=== PATIENT | male | born 1950 | race Caucasian/White ===

== ENCOUNTER → 2016-07-16 | Outpatient (CLI) | payer BC ==
[2016-03-03 07:00] VITALS: BP 110/54
[~2016-07-16] MED LIST: ASPI-482 PO; ATOR10TA PO; GLYB2.5T2 PO; INSU100V8 SQ; METF500T4 PO; TAMS0.4C97 PO; [UNRECOGNIZED DRUG - CODE]; [UNRECOGNIZED DRUG - OTHER]; [UNRECOGNIZED DRUG - OTHER]
--- NOTE | 2016-07-16 13:53 | KCIC ---
Three views of the bilateral shoulders Indication: Reason For Study Reason: PAIN / Spl. Instructions: Bilat shoulder pain for several mths. NKI. Cortisone DecemberFeb 2016 / History: FINDINGS Right: There is mild degenerative change of the AC joint no periosteal reaction or focal bone lesion. Visualized lung apex is clear. There is a small calcification along the superior lateral aspect of the humeral head which could represent an old avulsion or calcific tendonitis. Eft: There is mild degenerative change of the acromioclavicular articulation. No periosteal reaction or focal bone lesion. Visualized lung apex is clear. No fracture. IMPRESSION - Bilateral AC joint arthrosis. - There is an indeterminate calcification overlying the superolateral aspect of the humeral head which could represent an old avulsion or calcific tendinitis. Electronically signed by: Lee Ramos (Jul 16, 2016 13:52:12)
== END | disposition home or self-care (01) ==
LOC: KCIC 10:49
PROVIDERS: ATTEND Family Medicine
DX: M25.511 Pain in right shoulder (principal); M25.512 Pain in left shoulder; M19.012 Primary osteoarthritis, left shoulder
CPT/HCPCS: 73030

== ENCOUNTER → 2016-11-01 | Outpatient (CLI) | payer BC ==
[2016-03-03 07:00] VITALS: BP 110/54
[~2016-11-01] MED LIST changes: +IOHEXOL 180 MG/ML 10 ML VIAL. INT ART ONE; +LIDOCAINE 1% Multi-Dose 20 ML VIAL. ID ONE
--- NOTE | 2016-11-01 14:51 | KCIC ---
PROCEDURE CT arthrogram of the left shoulder HISTORY Rotator cuff tendinitis. Pain for 1 year. Overhead repetitive motion. TECHNIQUE Standard noncontrast imaging Exposure: One or more of the following individualized dose reduction techniques were utilized for this exam: 1. Automated exposure control. 2. Adjustment of the mA and/or kV according to patient size. 3. Use of iterative reconstruction technique. COMPARISON None FINDINGS Acromioclavicular joint demonstrates primary osteoarthritis with small undersurface osteophytes. No evidence of abnormal contrast within the rotator cuff. Minimal contrast within the anterior subdeltoid bursa likely just due to the injection procedure. No evidence of communicating defect. Glenohumeral joint appears intact without focal articular cartilage defect. Biceps tendon appears within the bicipital groove. Small focus of contrast identified at the anterior labrum, at 3 o'clock. I suspect this is located just anterior to the labrum, rather than intra labral signal or tear. No obvious soft tissue abnormality. IMPRESSION 1. No evidence of rotator cuff tear. 2. Acromioclavicular joint primary osteoarthritis. 3. Small focus of contrast identified at the anterior labrum, thought to be extralabral, rather than a tear. Electronically signed by: Faisal Funez MD (November 01, 2016 14:49:58)
--- NOTE | 2016-11-01 17:20 | KCIC ---
PROCEDURE: Left shoulder injection using fluoroscopic guidance, prior to CT. HISTORY: Shoulder pain. TECHNIQUE: The procedure was explained to the patient as were potential risks, including among others infection, bleeding or allergic reaction. All questions were answered. Informed written and verbal consent was obtained. The shoulder was prepped and draped in the usual sterile manner. Following administration of local anesthetic, a 22-gauge needle was advanced into the anterior shoulder. Following negative aspiration, 12 cc of a solution of 15 cc Omnipaque-180 contrast and 5 cc 1% lidocaine was injected without difficulty. The needle was removed. There was good hemostasis at the injection site. The patient left in stable condition without immediate complication. The patient was given postprocedural instructions, and instructed to contact us or the ER if there are any complications. A single spot image is obtained. FLUOROSCOPY TIME: 18 seconds Electronically signed by: Faisal Funez MD (November 01, 2016 17:18:58)
== END | disposition home or self-care (01) ==
LOC: KCIC 13:03
PROVIDERS: ATTEND Nurse Practitioner Gerontology
DX: M25.512 Pain in left shoulder (principal); M75.92 Shoulder lesion, unspecified, left shoulder
CPT/HCPCS: 73040; 73201

== ENCOUNTER 2016-11-18 08:08 | Outpatient (CLI) | payer BC ==
[2016-11-18] VITALS (9 sets, daily range): BP systolic 112–144; BP diastolic 67–78
[~2016-11-18] VITALS: Ht 177.8 cm; Wt 90.7 kg
[~2016-11-18 08:08] MED LIST changes: -IOHEXOL 180 MG/ML 10 ML VIAL. INT ART ONE; -LIDOCAINE 1% Multi-Dose 20 ML VIAL. ID ONE
[2016-11-18 08:26] LABS: HEMATOCRIT 40.8 % (39.0-53.0); HEMOGLOBIN 13.8 g/dL (13.0-17.5); RED BLOOD COUNT 4.48 x10^6/uL (4.30-5.70); WHITE BLOOD COUNT 9.7 x10^3/uL (4.0-11.0)
[2016-11-18] MEDS ORDERED: MULT-208 PO (08:28)
[2016-11-18] MEDS ORDERED: RABE20TA18 PO (08:28)
[2016-11-18] MEDS ORDERED: LISI1TAB5 PO (08:28)
[2016-11-18] MEDS ORDERED: TADA5TAB PO (08:28)
[2016-11-18] MEDS ORDERED: glucovance PO (08:28)
[2016-11-18] MEDS ORDERED: ASPI-630 PO (08:28)
[2016-11-18 08:38] LABS: CALCIUM 9.6 mg/dL (8.5-10.1); CREATININE 1.7 mg/dL (0.7-1.3); GFR 40.5; POTASSIUM 4.8 mmol/L (3.5-5.1)
[2016-11-18 08:39] LABS: INR 0.9 (0.8-1.1)
[2016-11-18] MEDS ORDERED: VERAPAMIL 5 MG/2 ML VIAL. ONE (09:17)
[2016-11-18] MEDS ORDERED: HEPARIN for IV BOLUS 10,000 UNIT/10 ML VIAL. ONE (09:17)
[2016-11-18] MEDS ORDERED: NITROGLYCERIN 200 MCG/2 ML SYRINGE FOR CATH/VASC LAB. ONE (09:17)
[2016-11-18] MEDS ORDERED: fentaNYL PF VIAL 100 MCG/2 ML VIAL ONE (09:17)
[2016-11-18] MEDS ORDERED: MIDAZOLAM HCL/PF 2 MG/2 ML VIAL. ONE (09:18)
[2016-11-18] MEDS ORDERED: LIDOCAINE 2% 20 ML VIAL. ONE (09:19)
[2016-11-18] MEDS ORDERED: IODIXANOL 320 MG/ML 100 ML VIAL. ONE (09:19)
[2016-11-18] MEDS ORDERED: LIDOCAINE 2% 20 ML VIAL. IJ ONE (09:30)
[2016-11-18] MEDS ORDERED: IODIXANOL 320 MG/ML 100 ML VIAL. IART ONE (09:30)
[2016-11-18] MEDS ORDERED: MIDAZOLAM HCL/PF 2 MG/2 ML VIAL. IV ONE (09:30)
[2016-11-18] MEDS ORDERED: fentaNYL PF VIAL 100 MCG/2 ML VIAL IV ONE (09:30)
[2016-11-18] MEDS ORDERED: 0.9 % SODIUM CHLORIDE 10 ML DISP.SYRIN. IV PRN (11:15)
[2016-11-18] MEDS ORDERED: NITROGLYCERIN SUBLINGUAL 0.4 MG BOTTLE OF 25. SL PRN (11:15)
--- NOTE | 2016-11-18 11:21 | CARD ---
APPROVED REPORT Procedure(s) performed: Left Heart Catheterization, Bypass angiography, coronary angiography Right Heart Catheterization HISTORY The patient is a 66 year-old male with a history of : diabetes mellitus with treatment, coronary shelby ry disease, previous CABG (The CABG date was ). INDICATION The indication(s) include : dyspnea, Patient is a 66 y.o male with exertional dyspnea suggestive of s ymptoms prior to his bypass. 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 . CASE TECHNIQUE During this case, Fluoroscopy and low osmolar contrast were used for imaging. PROCEDURE NARRATIVE The patient was brought electively to the cardiac catheterization lab. A timeout was performed confi rming the patient's name, date of , procedure, and site of procedure. All necessary personnel w ere wearing the appropriate protective equipment and radiation monitor devices. After explaining the risks and benefits of the procedure and alternatives, informed consent was obtained. (See nursing no david for medications administered). The right groin was sterilely prepped and draped in the usual fas hion. The right groin was infiltrated with 20 mL of 2% lidocaine for subcutaneous anesthesia. A 6 F sheath was inserted into the right femoral artery without difficulty via the modified seldinger techn ique with an 18G needle and a J-tipped guidewire. Next, an 8Fr sheath was inserted in the right commo n femoral vein in similar fashion without difficulty. A PA catheter was then advanced through the right heart chambers, pressures and saturations were obta ined. Subsequently, right and left coronary angiography was performed using standard JR4 and JL4 diag nostic catheters. Left ventricular end diastolic pressure was obtained with a pigtail catheter and p ullback was performed. HEMODYNAMICS: LVEDP 18mm Hg AO: 150/79 *No gradient on LV to aortic pullback. PCWP: 11 mm Hg PA:35/11/25 RV: 36/10/22 RA: 8 mm Hg Graeme: 4.5 L/min Tco: 5.5 L/min PA saturation: 71% FA saturation: 98% LEFT VENTRICULOGRAM: Deferred due to renal insufficiency. CORONARY ANGIOGRAPHY: LM is a large caliber vessel with normal angiographic appearance. LAD is a large caliber vessel an ostial occlusion. The mid to distal vessel fills via a patent WINKLER b ut is extremely small but patent. D1 has an ostial 100% occlusion. This fills via a SVG and distally has not significant disease. LCx is a moderate co-dominant vessel with a proximal 40% stenosis. The distal vessel fills in antegra de and via a SVG to the LPL OM1 is a small caliber vessel with normal angiographic appearance. LPL1 is a small caliber vessel with normal angiographic appearance. LPL2 is a moderate caliber vessel that fills via a SVG, there is also antegrade flow noted from the n ative circulation. RCA is a moderate caliber dominant vessel with mild diffuse irregularities of up to 30%. RPDA is a moderate caliber vessels with mild diffuse irregularities of up to 30%. BYPASS ANGIOGRAPHY: WINKLER to LAD - Widely patent without anastomotic stenosis. SVG sequential to D1/LPL - Widely patent without anastomotic stenosis. Conclusion 1. Normal biventricular filling pressures. 2. No pulmonary HTN 3. Normal cardiac output. 4. Severe two vessel coronary artery disease involving the LAD/Diagonal. 5. Patent WINKLER, SVG to D1/LPL sequential graft. Recommendations No obvious cardiac source of dyspnea noted. Plan for echocardiogram to rule out mitral or tricuspic insufficiency. Plan for 6 minute cole walk to rule out pulmonary source.
--- NOTE | 2016-11-18 13:03 | CARD ---
APPROVED REPORT EXAM: Two-dimensional and M-mode echocardiogram with Doppler and color Doppler. Other Information Quality : GoodHR: 62bpm Rhythm : NSR INDICATION Dyspnea 2D DIMENSIONS RVDd3.4 (2.9-3.5cm)Left Atrium(2D)3.6 (1.6-4.0cm) IVSd1.3 (0.7-1.1cm)Aortic Root(2D)3.3 (2.0-3.7cm) LVDd3.3 (3.9-5.9cm)LVOT Diameter2.3 (1.8-2.4cm) PWd1.2 (0.7-1.1cm)LVDs2.6 (2.5-4.0cm) FS (%) 22.5 %SV20.9 ml LVEF(%)46.5 (>50%) Aortic Valve AoV Peak Devaughn.119.6cm/sAoV VTI22.6cm AO Peak GR.5.7mmHgLVOT Peak Devaughn.80.6cm/s AO Mean GR.2mmHgAVA (VMAX)2.85cm2 Mitral Valve MV E Pxoomawe86.5cm/sMV E Peak Gr.2mmHg MV DECEL [id number] A Xzmhpwem99.9cm/s MV E Mean Gr.1mmHgE/A Ratio1.1 MV A Jqguqwis280wm Pulmonary Valve PV Peak Rigtobxw89.3cm/s Tricuspid Valve TR P. Mkytbbxu641gx/sTR Peak Gr.16mmHg Pulmonary Vein S1 Qscdueyd89.1cm/sD2 Oudnycpl70.4cm/s PVa kmnaoszw31wpte LEFT VENTRICLE The left ventricle cavity is small. There is mild concentric left ventricular hypertrophy. The left v entricular systolic function is normal and the ejection fraction is within normal range. The Ejection Fraction is 60-65%. There is normal LV segmental wall motion. Septal motion consistent with post-ope rative state. The left ventricular diastolic function and filling is normal for age. RIGHT VENTRICLE The right ventricle is normal size. There is normal right ventricular wall thickness. The right ventr icular systolic function is normal. ATRIA The left atrium size is normal. The right atrium size is normal. The interatrial septum is intact wit h no evidence for an atrial septal defect or patent foramen ovale as noted on 2-D or Doppler imaging. AORTIC VALVE The aortic valve is mildly sclerotic. The aortic valve is trileaflet. Doppler and Color Flow revealed no significant aortic regurgitation. There is no significant aortic valvular stenosis. MITRAL VALVE Mitral annular calcification is mild. The mitral valve leaflets are thickened. There is no evidence o f mitral valve prolapse. There is no mitral valve stenosis. Doppler and Color Flow revealed trace nelida ral regurgitation. TRICUSPID VALVE Doppler and Color Flow revealed trace tricuspid regurgitation. The pulmonary artery systolic pressure is estimated at 19 mmHg. There is no pulmonary hypertension. PULMONIC VALVE Doppler and Color Flow revealed trace pulmonic valvular regurgitation. There is no pulmonic valvular stenosis. GREAT VESSELS The aortic root is normal in size. The ascending aorta is normal in size. The IVC is normal in size a nd collapses >50% with inspiration. PERICARDIAL EFFUSION There is no evidence of significant pericardial effusion. Critical Notification Critical Value: No <Conclusion> There is mild concentric left ventricular hypertrophy. The left ventricular systolic function is normal and the ejection fraction is within normal range. Th e Ejection Fraction is 60-65%. There is normal LV segmental wall motion. Septal motion consistent with post-operative state.
== END 2016-11-18 13:45 | disposition home or self-care (01) ==
LOC: CCL 08:08
PROVIDERS: ATTEND Internal Medicine Cardiovascular Disease
DX: I25.10 Atherosclerotic heart disease of native coronary artery without angina pectoris (principal); E78.00 Pure hypercholesterolemia, unspecified; E11.9 Type 2 diabetes mellitus without complications; Z72.89 Other problems related to lifestyle; Z79.01 Long term (current) use of anticoagulants
CPT/HCPCS: 36415; 80048; 85027; 85610; 85730; 93306; 93453; 94620; C1769; C1771; C1773; C1892; J2250; J3010; G0269

== ENCOUNTER → 2016-12-31 | Outpatient (CLI) | payer BC ==
[2016-11-18 13:00] VITALS: BP 120/78
[~2016-12-31] MED LIST changes: +ASPI-630 PO; +LISI1TAB5 PO; +MULT-208 PO; +RABE20TA18 PO; +TADA5TAB PO; +glucovance PO
--- NOTE | 2016-12-31 08:52 | KCIC ---
Indication: Shortness of air. Time of exam 8:36 AM Comparison is made with prior chest from 03/01/2016. Changes of median sternotomy are noted. The heart size is normal. Lungs are clear. The vascularity is normal. No infiltrate, effusion or pneumothorax is seen. IMPRESSION: No acute cardiopulmonary process is detected. Electronically signed by: Steve Ace MD (12/31/2016 8:49 AM) [id number]
== END | disposition home or self-care (01) ==
LOC: KCIC 08:21
PROVIDERS: ATTEND Internal Medicine Pulmonary Disease
DX: R06.02 Shortness of breath (principal)
CPT/HCPCS: 71020

== ENCOUNTER 2017-08-19 17:11 | Emergency (ER) | payer BC, MEDICARE ==
[2017-08-19] MEDS: IV NORMAL SALINE 1000ML BAG 1,000 ML IV ×2 (18:09→19:12)
[2017-08-19] MEDS: FAMOTIDINE 20 MG/2 ML VIAL IVP (18:10)
[2017-08-19] MEDS: ONDANSETRON PF 4 MG/2 ML VIAL. IV (18:10)
[2017-08-19 18:18] LABS: BASO % 0 % (0-3); EOS % 0 % (0-3); HEMATOCRIT 40.1 % (39.0-53.0); LYMPH # 0.3 x10^3/uL (1.0-4.8); LYMPH % 2 % (24-48); MEAN CORPUSCULAR HEMOGLOBIN 30 pg (25-35); MEAN CORPUSCULAR HGB CONC 35 g/dL (31-37); MEAN CORPUSCULAR VOLUME 86 fL (79-100); MONO # 0.4 x10^3/uL (0.0-1.1); MONO % 3 % (0-9); NEUT # 14.6 x10^3uL (1.8-7.7); NEUT % 95 % (31-73); PLATELET COUNT 244 x10^3/uL (140-400); RED BLOOD COUNT 4.69 x10^6/uL (4.30-5.70); RED CELL DISTRIBUTION WIDTH 13.6 % (11.5-14.5); WHITE BLOOD COUNT 15.3 x10^3/uL (4.0-11.0)
[2017-08-19 18:20] LABS: ADD MAN DIFF? YES
[2017-08-19 18:31] LABS: ANION GAP 14 (6-14); BLOOD UREA NITROGEN 32 mg/dL (8-26); BUN/CREATININE RATIO 21 (6-20); CALCIUM 9.2 mg/dL (8.5-10.1); CARBON DIOXIDE 27 mmol/L (21-32); CHLORIDE 96 mmol/L (98-107); CREATININE 1.5 mg/dL (0.7-1.3); GFR 46.8; GLUCOSE 339 mg/dL (70-99); POTASSIUM 3.6 mmol/L (3.5-5.1); SODIUM 137 mmol/L (136-145)
[2017-08-19 18:37] LABS: ALBUMIN 3.8 g/dL (3.4-5.0); ALK PHOS 115 U/L (46-116); ALT (SGPT) 34 U/L (16-63); AST (SGOT) 21 U/L (15-37); LIPASE 116 U/L (73-393); TOTAL BILIRUBIN 0.9 mg/dL (0.2-1.0); TOTAL PROTEIN 7.6 g/dL (6.4-8.2)
[2017-08-19 18:41] LABS: TROPONINI < 0.017 ng/mL (0.000-0.055)
[2017-08-19 18:53] LABS: ACETONE SM POS (NEG)
[2017-08-19 18:55] LABS: % BANDS 3 % (0-9); % LYMPHS 1 % (24-48); % MONOS 1 % (0-10); % SEGS 95 % (35-66); PLT ESTIMATE ADEQUATE (ADEQUATE)
[2017-08-19] MEDS: PROMETHAZINE 12.5 MG in IV DEXTROSE 5% 50 ML IV (19:15)
[2017-08-19 20:11] LABS: POC GLUCOSE 228 mg/dL (70-99)
[2017-08-19 20:44] LABS: BILIRUBIN,URINE NEGATIVE (NEG); CLARITY,URINE CLEAR; COLOR,URINE YELLOW; GLUCOSE,URINE >=1000 mg/dL (NEG); NITRITE,URINE NEGATIVE (NEG); PROTEIN,URINE 100 mg/dL (NEG-TRACE); UROBILINOGEN,URINE 0.2 mg/dL (0.2 mg/dL)
[2017-08-19 20:53] LABS: BACTERIA,URINE 0 /HPF (0-FEW); RBC,URINE RARE /HPF (0-2); SQUAMOUS EPITHELIAL CELL,UR OCC /LPF; WBC,URINE OCC /HPF (0-4)
[2017-08-19] MEDS ORDERED: ONDANSETRON ODT 4 MG TAB.RAPDIS. (21:49)
[2017-08-19] MEDS: ONDANSETRON ODT 4 MG TAB.RAPDIS. PO (21:56)
== END 2017-08-19 22:39 | disposition home or self-care (01) ==
LOC: ER 17:11
DX: R11.2 Nausea with vomiting, unspecified (principal); E11.65 Type 2 diabetes mellitus with hyperglycemia; R10.13 Epigastric pain; E78.00 Pure hypercholesterolemia, unspecified; K21.9 Gastro-esophageal reflux disease without esophagitis; I95.9 Hypotension, unspecified; Z95.1 Presence of aortocoronary bypass graft; Z79.4 Long term (current) use of insulin
CPT/HCPCS: 36415; 80053; 81001; 82010; 82962; 83690; 84484; 85007; 85025; 93005; 96361; 96365; 96375; 99285-25; J2405; J2550; J7030; Q0162; S0028

== ENCOUNTER 2018-01-06 16:15 | Emergency (ER) | payer BC, MEDICARE ==
[2018-01-06 16:31] LABS: POC GLUCOSE 477 mg/dL (70-99)
[2018-01-06] MEDS: IV NORMAL SALINE 1000ML BAG 1,000 ML IV (16:36)
[2018-01-06 16:37] LABS: ADD MAN DIFF? NO
[2018-01-06 16:40] LABS: BASO % 0 % (0-3); EOS % 0 % (0-3); HEMATOCRIT 41.4 % (39.0-53.0); HEMOGLOBIN 14.7 g/dL (13.0-17.5); LYMPH # 1.9 x10^3/uL (1.0-4.8); LYMPH % 17 % (24-48); MEAN CORPUSCULAR HEMOGLOBIN 30 pg (25-35); MEAN CORPUSCULAR HGB CONC 36 g/dL (31-37); MEAN CORPUSCULAR VOLUME 83 fL (79-100); MONO # 0.9 x10^3/uL (0.0-1.1); MONO % 8 % (0-9); NEUT # 8.3 x10^3uL (1.8-7.7); NEUT % 75 % (31-73); PLATELET COUNT 332 x10^3/uL (140-400); RED BLOOD COUNT 4.97 x10^6/uL (4.30-5.70); RED CELL DISTRIBUTION WIDTH 14.5 % (11.5-14.5); WHITE BLOOD COUNT 11.1 x10^3/uL (4.0-11.0)
[2018-01-06 17:01] LABS: ANION GAP 13 (6-14); BLOOD UREA NITROGEN 25 mg/dL (8-26); BUN/CREATININE RATIO 15 (6-20); CALCIUM 9.3 mg/dL (8.5-10.1); CARBON DIOXIDE 26 mmol/L (21-32); CHLORIDE 92 mmol/L (98-107); CREATININE 1.7 mg/dL (0.7-1.3); GFR 40.4; POTASSIUM 3.1 mmol/L (3.5-5.1); SODIUM 131 mmol/L (136-145)
[2018-01-06 17:03] LABS: GLUCOSE 469 mg/dL (70-99)
[2018-01-06 17:06] LABS: ALBUMIN 4.4 g/dL (3.4-5.0); ALBUMIN/GLOBULIN RATIO 1.2 (1.0-1.7); ALK PHOS 92 U/L (46-116); ALT (SGPT) 30 U/L (16-63); AST (SGOT) 20 U/L (15-37); MAGNESIUM 1.7 mg/dL (1.8-2.4); TOTAL PROTEIN 8.2 g/dL (6.4-8.2)
[2018-01-06] MEDS: INSULIN REGULAR 100 UNIT/ML 3ML VIAL. IV (17:08)
[2018-01-06 17:14] LABS: ACETONE NEG (NEG)
[2018-01-06 17:17] LABS: BILIRUBIN,URINE NEGATIVE (NEG); CLARITY,URINE CLEAR; COLOR,URINE YELLOW; GLUCOSE,URINE >=1000 mg/dL (NEG); NITRITE,URINE NEGATIVE (NEG); PH,URINE 5.5; PROTEIN,URINE 100 mg/dL (NEG-TRACE); UROBILINOGEN,URINE 0.2 mg/dL (0.2 mg/dL)
[2018-01-06 17:29] LABS: BACTERIA,URINE 0 /HPF (0-FEW); SQUAMOUS EPITHELIAL CELL,UR FEW /LPF
[2018-01-06] MEDS: POTASSIUM CHLORIDE 20 MEQ TABLET.ER. PO (18:01)
[2018-01-06 18:04] LABS: POC GLUCOSE 115 mg/dL (70-99)
== END 2018-01-06 18:05 | disposition home or self-care (01) ==
LOC: ER 16:15
DX: E11.65 Type 2 diabetes mellitus with hyperglycemia (principal); E87.6 Hypokalemia; E78.00 Pure hypercholesterolemia, unspecified; K21.9 Gastro-esophageal reflux disease without esophagitis; I11.9 Hypertensive heart disease without heart failure; Z95.5 Presence of coronary angioplasty implant and graft
CPT/HCPCS: 36415; 71046; 80053; 81001; 82010; 82962; 83735; 83930; 85025; 93005; 96361; 96374; 99285-25; J1815; J7030

== ENCOUNTER → 2018-04-26 | Outpatient (CLI) | payer BC ==
[2018-01-06 18:03] VITALS: BP 140/80
[~2018-04-26] MED LIST changes: +METF500T16 PO; -METF500T4 PO
--- NOTE | 2018-04-26 11:35 | CARD ---
MR#: [id number] Date of Study: 04/26/2018 Ordering Physician: VIC WORKMAN, Referring Physician: VIC WORKMAN, Tech: Aracelis Macias MICHELLE APPROVED REPORT EXAM: Two-dimensional and M-mode echocardiogram with Doppler and color Doppler. Other Information Quality : GoodHR: 60bpm Rhythm : NSR INDICATION Pre Op 2D DIMENSIONS RVDd3.1 (2.9-3.5cm)Left Atrium(2D)3.8 (1.6-4.0cm) IVSd1.5 (0.7-1.1cm)Aortic Root(2D)3.2 (2.0-3.7cm) LVDd4.4 (3.9-5.9cm)LVOT Diameter2.0 (1.8-2.4cm) PWd1.3 (0.7-1.1cm)LVDs3.0 (2.5-4.0cm) FS (%) 32.1 %SV53.0 ml LVEF(%)60.5 (>50%) M-Mode DIMENSIONS Left Atrium(MM)3.48 (2.5-4.0cm)Aortic Root3.77 (2.2-3.7cm) Aortic Valve AoV Peak Devaughn.144.0cm/sAoV VTI31.8cm AO Peak GR.8.3mmHgLVOT Peak Devaughn.125.0cm/s AO Mean GR.4mmHgAVA (VMAX)2.76cm2 YVONNE (VTI)2.80cm2 Mitral Valve MV E Wiwmofit21.4cm/sMV E Peak Gr.4mmHg MV DECEL [id number] A Jateagaw86.2cm/s MV E Mean Gr.1mmHgE/A Ratio1.5 MV A [id number] Pulmonary Valve PV Peak Mtltzlbi87.7cm/s Tricuspid Valve TR P. Eucrvikd465hf/sRAP KTGEVJBM7ziNu TR Peak Gr.81skFgZGLG74oaIf Pulmonary Vein S1 Aptuaxya49.5cm/sD2 Oupbclha81.4cm/s PVa zjsccngc58ldnn LEFT VENTRICLE The left ventricle is normal size. There is mild concentric left ventricular hypertrophy. The left ve ntricular systolic function is normal and the ejection fraction is within normal range. The Ejection Fraction is 55-60%. There is normal LV segmental wall motion. Transmitral Doppler flow pattern is Gra de I-abnormal relaxation pattern. RIGHT VENTRICLE The right ventricle is normal size. There is normal right ventricular wall thickness. The right ventr icular systolic function is normal. ATRIA The left atrium size is normal. The right atrium size is normal. The interatrial septum is intact wit h no evidence for an atrial septal defect or patent foramen ovale as noted on 2-D or Doppler imaging. AORTIC VALVE The aortic valve is trileaflet. The aortic valve is calcified but opens well. Doppler and Color Flow revealed no significant aortic regurgitation. There is no significant aortic valvular stenosis. MITRAL VALVE The mitral valve is normal in structure and function. There is no evidence of mitral valve prolapse. There is no mitral valve stenosis. Doppler and Color-flow revealed trace to mild mitral regurgitation . TRICUSPID VALVE The tricuspid valve is normal in structure and function. Doppler and Color Flow revealed trace tricus pid regurgitation. The PA pressure was estimated at 24 mmHg. There is no tricuspid valve prolapse or vegetation. There is no tricuspid valve stenosis. PULMONIC VALVE The pulmonary valve is normal in structure and function. Doppler and Color Flow revealed trace pulmon ic valvular regurgitation. There is no pulmonic valvular stenosis. GREAT VESSELS The aortic root is normal in size. PERICARDIAL EFFUSION There is no evidence of significant pericardial effusion. Critical Notification Critical Value: No <Conclusion> The left ventricle is normal size. The left ventricular systolic function is normal and the ejection fraction is within normal range. The Ejection Fraction is 55-60%. There is mild concentric left ventricular hypertrophy. There is no significant aortic valvular stenosis. Doppler and Color Flow revealed no significant aortic regurgitation. Doppler and Color-flow revealed trace to mild mitral regurgitation. Doppler and Color Flow revealed trace tricuspid regurgitation. The PA pressure was estimated at 24 mmHg. Signed by : Sohail Macario MD Electronically Approved : 04/26/2018 11:34:22
== END | disposition home or self-care (01) ==
LOC: ECHO 10:33
PROVIDERS: ATTEND Internal Medicine Cardiovascular Disease
DX: I34.0 Nonrheumatic mitral (valve) insufficiency (principal); I51.7 Cardiomegaly
CPT/HCPCS: 93306

== ENCOUNTER 2018-08-15 15:39 | Emergency (ER) | payer BC, MEDICARE ==
[~2018-08-15] VITALS: Ht 177.8 cm; Wt 81.6 kg
[2018-08-15] MEDS ORDERED: IV NORMAL SALINE 1000ML BAG 1,000 ML IV ONE (16:15)
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
[2018-08-15 16:33] LABS: BASO # 0.1 x10^3/uL (0.0-0.2); BASO % 1 % (0-3); EOS % 0 % (0-3); HEMATOCRIT 40.9 % (39.0-53.0); HEMOGLOBIN 13.8 g/dL (13.0-17.5); LYMPH # 2.4 x10^3/uL (1.0-4.8); LYMPH % 22 % (24-48); MEAN CORPUSCULAR HEMOGLOBIN 30 pg (25-35); MEAN CORPUSCULAR HGB CONC 34 g/dL (31-37); MEAN CORPUSCULAR VOLUME 89 fL (79-100); MONO # 0.9 x10^3/uL (0.0-1.1); MONO % 8 % (0-9); NEUT # 7.3 x10^3uL (1.8-7.7); NEUT % 69 % (31-73); PLATELET COUNT 329 x10^3/uL (140-400); RED BLOOD COUNT 4.59 x10^6/uL (4.30-5.70); RED CELL DISTRIBUTION WIDTH 13.2 % (11.5-14.5); WHITE BLOOD COUNT 10.6 x10^3/uL (4.0-11.0)
--- NOTE | 2018-08-15 16:46 | RAD ---
EXAM: Chest, 2 views. HISTORY: Cough. COMPARISON: 01/06/2018. FINDINGS: 2 views the chest are obtained. There is no infiltrate, pleural effusion or pneumothorax. The heart is normal in size. There are findings consistent with CABG. IMPRESSION: No acute pulmonary finding. Electronically signed by: Stephanie Ruiz MD (08/15/2018 4:43 PM) [facility]
[2018-08-15 16:57] LABS: INFLUENZA A PATIENT NEGATIVE (NEGATIVE); INFLUENZA B PATIENT NEGATIVE (NEGATIVE)
[2018-08-15 16:59] LABS: CALCIUM 9.2 mg/dL (8.5-10.1); CREATININE 1.6 mg/dL (0.7-1.3); GFR 43.3; POTASSIUM 3.7 mmol/L (3.5-5.1)
[2018-08-15 17:05] LABS: ALBUMIN 4.2 g/dL (3.4-5.0); ALBUMIN/GLOBULIN RATIO 1.3 (1.0-1.7); MAGNESIUM 1.8 mg/dL (1.8-2.4); TOTAL BILIRUBIN 0.7 mg/dL (0.2-1.0); TOTAL PROTEIN 7.4 g/dL (6.4-8.2)
[2018-08-15] MEDS ORDERED: ONDA4TAB12 PO (18:11)
[2018-08-15 18:54] LABS: BILIRUBIN,URINE SMALL (NEG); CLARITY,URINE CLEAR; COLOR,URINE YELLOW; NITRITE,URINE NEGATIVE (NEG); PH,URINE 6.5; PROTEIN,URINE 100 mg/dL (NEG-TRACE)
[2018-08-15 19:06] VITALS: BP 132/61
[2018-08-15 19:06] LABS: HYALINE CASTS, URINE MODERATE /HPF; SQUAMOUS EPITHELIAL CELL,UR FEW /LPF
[2018-08-15 19:07] LABS: BACTERIA,URINE 0 /HPF (0-FEW); WBC,URINE 0 /HPF (0-4)
--- NOTE | 2018-08-16 18:48 | EKG ---
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
== END 2018-08-15 19:17 | disposition home or self-care (01) ==
LOC: ER 15:39
DX: E86.0 Dehydration (principal); R11.2 Nausea with vomiting, unspecified; M79.10 Myalgia, unspecified site; E11.9 Type 2 diabetes mellitus without complications; K21.9 Gastro-esophageal reflux disease without esophagitis; E78.00 Pure hypercholesterolemia, unspecified; I10 Essential (primary) hypertension; Z90.89 Acquired absence of other organs; Z95.1 Presence of aortocoronary bypass graft
CPT/HCPCS: 36415; 71046; 80053; 81001; 83735; 84484; 85025; 87804; 93005; 96360; 99284; J7030

== ENCOUNTER → 2019-01-19 | Outpatient (CLI) | payer BC ==
[~2019-01-19] MED LIST changes: +AMLO5TAB10 PO; +CRESTOR10 MG PO; +DOCU-109 PO; +HYDR-2759 PO; +HYDR-2765 PO; +HYDR50TA6 PO; +ONDA4TAB12 PO
--- NOTE | 2019-01-19 13:43 | KCIC ---
CT cervical spine without contrast History: Bilateral shoulder and arm pain, twisting injury Technique: Noncontrast CT imaging was performed of the cervical spine. Multiplanar reconstruction images are submitted. Exposure: One or more of the following individualized dose reduction techniques were utilized for this examination: 1. Automated exposure control 2. Adjustment of the mA and/or kV according to patient size 3. Use of iterative reconstruction technique. Comparison: None Findings: Cervical vertebral body stature and AP alignment are within normal limits. Atlanto-axial distance is within normal limits. There is appropriate alignment of lateral masses of C1 relative to C2. Occipital condylar-C1 relationship is maintained. There is moderate degenerative disc disease C6-7, minimally at C5-6, C3-4, C2-3. There is atherosclerotic calcification of the carotid arteries in the neck bilaterally. C2-C3: There is shallow posterior protrusion estimated about 2 mm AP. Central canal is minimally narrowed to about 8 to 9 mm. Neural foramina are not significantly narrowed. There is mild uncovertebral degenerative change, also bilateral facet degenerative change. C3-4: There is minimal disc osteophyte complex, superimposed shallow central protrusion, likely narrowing of the central canal about 8 mm. There is bilateral facet and left greater than right uncovertebral degenerative change. There is minimal narrowing of the left neural foramen, right neural foramen adequate. C4-C5: There is moderate to severe facet degenerative change bilaterally. There is shallow posterior central protrusion. Central canal is likely minimally narrowed about 9 to 10 mm. There is mild neural foramina compromise bilaterally. C5-C6: There is disc osteophyte complex, superimposed more central protrusion/mostly contained extrusion estimated about 4 to 5 mm AP by 5 to 6 mm CC by about 7 mm transverse. There is indentation upon the ventral thecal sac greatest centrally, significant central canal stenosis estimated about 4 mm. There is fairly severe bilateral facet degenerative change. There is uncovertebral degenerative change bilaterally. There is moderate to severe right greater than left neural foramina compromise. C6-C7: There is disc osteophyte complex slightly indenting the ventral thecal sac greater in the left lateral recess. There is probable also more central protrusion although poorly characterized due to artifact, central canal probably narrowed about 8 mm. There is severe left uncovertebral degenerative change and larger osteophyte in the left neural foramen, also bilateral facet hypertrophic change. There is severe narrowing of the left neural foramen greater superiorly, minimal narrowing of the right neural foramen. C7-T1: Spinal canal and neural foramina are adequate. Impression: 1. There is significant spinal stenosis estimated about 4 mm at C5-6 by protrusion/mostly contained extrusion indenting the ventral thecal sac. There is lesser degree of mild spinal stenosis as described at other levels of the cervical spine other than sparing C7-T1. 2. There is multilevel facet and uncovertebral degenerative change resulting in multilevel neural foramina compromise as stated, more significant narrowing bilaterally at C5-6 and on the left at C6-7. 3. There is moderate degenerative disc disease C6-7, minimally of more superior levels. There is multilevel spondylosis. 4. There is atherosclerotic calcification of the carotid arteries in the neck bilaterally. Electronically signed by: Kennedy Barth MD (01/19/2019 1:40 PM) [email or web address]
== END | disposition home or self-care (01) ==
LOC: KCIC CT 10:10
PROVIDERS: ATTEND Family Medicine
DX: M48.03 Spinal stenosis, cervicothoracic region (principal); M50.222 Other cervical disc displacement at C5-C6 level; M50.31 Other cervical disc degeneration, high cervical region; M47.812 Spondylosis without myelopathy or radiculopathy, cervical region; I70.8 Atherosclerosis of other arteries; M25.78 Osteophyte, vertebrae
CPT/HCPCS: 72125

== ENCOUNTER → 2019-01-31 | Outpatient (CLI) | payer BC ==
[~2019-01-31] MED LIST changes: -AMLO5TAB10 PO; -CRESTOR10 MG PO; -DOCU-109 PO; -HYDR-2759 PO; -HYDR-2765 PO; -HYDR50TA6 PO; +IOHEXOL 300 MG/ML 50 ML VIAL. IT ONE; +LIDOCAINE 1% Multi-Dose 20 ML VIAL. ID ONE
--- NOTE | 2019-01-31 13:22 | KCIC ---
Cervical myelogram 01/31/2019 Clinical History: Neck pain with right arm pain. Technique: After the risks and benefits of the procedure were explained to the patient, written informed consent was obtained. The patient was placed prone on the fluoroscopy table and the lower back was prepped and draped in sterile fashion. 1% lidocaine was used as a local anesthetic. Under fluoroscopic guidance, the thecal sac of the lumbar cistern was punctured at the L2-L3 level using a 25-gauge Moni needle using a coaxial technique. After confirming clear CSF return, 8 cc of Omnipaque 300 were injected through the needle under fluoroscopic guidance. Following this the needle was removed and hemostasis achieved at the puncture site. A sterile bandage was placed on the skin puncture site. The contrast column was advanced under fluoroscopy into the cervical spine. and AP and bilateral oblique digital spot radiographs and crosstable lateral and swimmer's lateral digital radiographs of the cervical spine with an obtained. Following this the patient was taken to CT where a CT scan of the cervical spine was performed. This will be reported separately. The patient was then observed for approximately 30 minutes prior to discharge home. The patient tolerated the procedure well and there were no immediate complications. The total fluoroscopic time for this procedure was 27 seconds. 3 digital spot radiographs were obtained. FINDINGS: Very mild lateral curvature of the cervical spine is seen convex to the right. Degenerative changes consisting of vertebral endplate sclerosis and mild to moderate anterior and posterior vertebral body osteophyte formation are seen throughout the cervical disc spaces. Degenerative changes are seen involving the uncovertebral and facet joints throughout the cervical disc spaces. A mild anterior extradural defect is seen involving the contrast column at the C3-4 level. A moderate anterior extradural defect is seen upon the contrast column at the C5-6 level. There is no evidence of complete block contrast at any level involving the cervical vertebrae. Atherosclerotic calcification is seen in the region of the carotid bifurcations bilaterally. IMPRESSION: Degenerative changes are seen throughout the cervical spine as discussed above. A mild anterior extradural defect is seen upon the contrast column at C3-4. A moderate anterior extradural defect is seen upon the contrast column at C5-6. Electronically signed by: Dav Nino MD (01/31/2019 1:20 PM) [email or web address]
--- NOTE | 2019-01-31 13:43 | KCIC ---
CT cervical myelogram 01/31/2019 Clinical History: Neck pain. Right arm pain. Cochlear implant. Technique: This study was performed after the patient's cervical myelogram, contiguous, 0.6 mm axial sections were obtained through the cervical spine. 2 mm sagittal, axial and coronal reconstructed images were obtained. One or more of the following individualized dose reduction techniques were utilized for this study: 1. Automated exposure control. 2. Adjustment of the mA and/or kV according to patient size. 3. Use of iterative reconstruction technique. FINDINGS: Comparison is made to a CT scan of the cervical spine dated 01/19/2019. Additional comparison is made to the patient's cervical myelogram performed earlier today. Sagittal and coronal reconstructed images demonstrate mild lateral curvature of the cervical spine, convex to the right. There is straightening of the normal cervical lordosis. Degenerative changes consisting of vertebral endplate sclerosis and mild to moderate anterior and posterior vertebral body osteophyte formation are seen throughout the cervical disc spaces. Atherosclerotic calcification is seen in the region of the carotid bifurcations. At the C2-3 disc space there is a mild generalized disc bulge. Superimposed on this disc bulge is a central/right paracentral focal disc protrusion. This measures 3 mm in AP diameter. Degenerative changes are seen involving the uncovertebral and facet joints bilaterally. These findings efface the anterior CSF, right greater than left resulting in mild right greater than left central spinal canal stenosis without evidence of cord impingement. No neural foraminal stenosis is seen. At the C3-4 disc space there is a mild generalized disc bulge. Superimposed on this disc bulge is a focal central disc protrusion. This measures 2 mm in AP diameter. Degenerative changes are seen involving the uncovertebral and facet joints, left greater than right. These findings efface the anterior CSF without resulting in significant central spinal canal or neural foraminal stenosis. At the C4-5 disc space there is a mild generalized disc bulge. Superimposed on this disc bulge is a focal central disc protrusion. This measures 2 mm in AP diameter. Degenerative changes are seen involving the uncovertebral and facet joints bilaterally. These findings do not result in significant central spinal canal or neural foraminal stenosis. At the C5-6 disc space there is a mild generalized disc bulge. Superimposed on this disc bulge is a focal central disc herniation. This measures 6 mm in AP diameter. Degenerative changes are seen involving the uncovertebral and facet joints bilaterally. The disc herniation effaces the anterior CSF resulting in moderate central spinal canal stenosis with moderate cord impingement. Mild bilateral neural foraminal stenosis is seen. At the C6-7 disc space there is a mild generalized disc bulge. This is eccentric to the left. Degenerative changes are seen involving the uncovertebral and facet joints, left greater than right. These findings when combined do not result in significant central spinal canal stenosis. Mild to moderate left greater than right neural foraminal stenosis is seen. At the C7-T1 disc space there is a minimal generalized disc bulge. Degenerative changes are seen involving the facet joints bilaterally. These findings do not result in significant central spinal canal or neural foraminal stenosis. IMPRESSION: Degenerative changes are seen throughout the cervical spine. These findings result in mild right greater than left central spinal canal stenosis without evidence of cord impingement at C2-3. Mild bilateral neural foraminal stenosis is seen at C5-6. Mild to moderate left greater than right neural foraminal stenosis is seen at C6-7. At the C5-6 disc space a focal central disc herniation is seen which results in moderate central spinal canal stenosis with moderate cord impingement. Electronically signed by: Dav Nino MD (01/31/2019 1:40 PM) [email or web address]
== END | disposition home or self-care (01) ==
LOC: KCIC 09:55
PROVIDERS: ATTEND Neurological Surgery
DX: M47.813 Spondylosis without myelopathy or radiculopathy, cervicothoracic region (principal); M50.222 Other cervical disc displacement at C5-C6 level; M48.02 Spinal stenosis, cervical region; M25.78 Osteophyte, vertebrae; I65.23 Occlusion and stenosis of bilateral carotid arteries; I10 Essential (primary) hypertension; E11.9 Type 2 diabetes mellitus without complications; Z79.01 Long term (current) use of anticoagulants
CPT/HCPCS: 72126; 72240; Q9967

== ENCOUNTER → 2019-04-24 | Outpatient (CLI) | payer BC, MEDICARE ==
[2019-02-10 11:00] VITALS: BP 166/62
[~2019-04-24] MED LIST changes: +AMLO5TAB10 PO; +CRESTOR10 MG PO; +DOCU-109 PO; +HYDR-2759 PO; +HYDR-2765 PO; +HYDR50TA6 PO; -IOHEXOL 300 MG/ML 50 ML VIAL. IT ONE; -LIDOCAINE 1% Multi-Dose 20 ML VIAL. ID ONE; +LISI1TAB19 PO; -LISI1TAB5 PO
--- NOTE | 2019-04-24 13:27 | KCIC ---
EXAM: Cervical spine, 4 views. HISTORY: Pain status post fusion. COMPARISON: 01/31/2019 FINDINGS: 4 views of the cervical spine are obtained. There is instrumented intraspinal fusion and interbody fusion at C5-C6. There is minimal retrolisthesis of C2 on C3. There is minimal endplate remodeling and there is mild facet arthropathy at multiple levels. There is partial visualization of median sternotomy wires. There is calcified plaque within the carotid bifurcations. IMPRESSION: 1. Instrumented fusion at C5-C6. 2. Mild multilevel degenerative change. 3. No acute osseous finding. Electronically signed by: Stephanie Ruiz MD (04/24/2019 1:24 PM) [facility]
== END | disposition home or self-care (01) ==
LOC: KCIC 11:16
PROVIDERS: ATTEND Neurological Surgery
DX: M47.812 Spondylosis without myelopathy or radiculopathy, cervical region (principal); M12.88 Other specific arthropathies, not elsewhere classified, other specified site; I65.29 Occlusion and stenosis of unspecified carotid artery; Z98.1 Arthrodesis status
CPT/HCPCS: 72040

== ENCOUNTER → 2019-07-16 | Outpatient (CLI) | payer MEDICARE ==
[2019-02-10 11:00] VITALS: BP 166/62
--- NOTE | 2019-07-17 08:05 | KCIC ---
EXAM: CT CERVICAL SPINE WITHOUT CONTRAST. HISTORY: Bilateral upper extremity radiculopathy. Status post cervical surgery. TECHNIQUE: Computed tomography of the cervical spine was performed without intravenous contrast. One or more of the following individualized dose reduction techniques were utilized for this examination: 1. Automated exposure control. 2. Adjustment of the mA and/or kV according to patient size. 3. Use of iterative reconstruction technique. COMPARISON: 01/31/2019. FINDINGS: There are anterior cervical discectomy and fusion changes at C5-6. The interbody fusion is not yet clearly solid. No fractures are identified. There is mild osteoarthritis at C1-2. Degenerative disc disease is mild at C2-3 and mild to moderate at C6-7. There is a mild cervical dextrocurvature. There is no prevertebral soft tissue swelling. At C2-3, there is a moderate posterior disc-osteophyte complex with a superimposed central moderate protrusion. This results in moderate central canal stenosis with minimal anteroposterior central canal diameter 7.5 mm. Uncovertebral osteoarthritis is mild bilaterally. At C3-4, there is a small posterior disc bulge with a small central protrusion. Central canal stenosis is moderate with minimal anteroposterior central canal diameter 8 mm. Uncovertebral osteoarthritis is mild on the left greater than right. Neural foraminal stenosis is mild on the left. At C4-5, there is a small to moderate posterior disc bulge. Central canal stenosis is mild. Neural foraminal stenosis is moderate on the right. At C5-6, there is a small to moderate residual posterior disc bulge. Uncovertebral osteoarthritis is moderate bilaterally. Neural foraminal stenosis is moderate to severe on the left and moderate on the right. At C6-7, there is a moderate posterior disc-osteophyte complex with a superimposed moderate central and left paracentral protrusion. Central canal stenosis appears moderate with minimal anteroposterior central canal diameter 7.5 mm. Uncovertebral osteoarthritis is moderate to severe on the left and moderate on the right. Neural foraminal stenosis is moderate to severe on the left and moderate on the right. There are atherosclerotic calcifications at both carotid bulbs. IMPRESSION: 1. C5-6 anterior cervical discectomy and fusion is not yet solidly fused. 2. Multilevel central canal stenosis is mild to moderate as detailed above. MRI could further characterize stenosis if there is persistent concern. 3. Multifocal uncovertebral osteoarthritis results in multifocal neural foraminal stenosis that is up to moderate/severe on the left at C6-7 as above. Electronically signed by: Dasha Eaton MD (07/17/2019 8:02 AM) [facility]
== END | disposition home or self-care (01) ==
LOC: KCIC CT 13:22
PROVIDERS: ATTEND Family Medicine
DX: M50.11 Cervical disc disorder with radiculopathy, high cervical region (principal); M47.22 Other spondylosis with radiculopathy, cervical region; M48.02 Spinal stenosis, cervical region; I65.23 Occlusion and stenosis of bilateral carotid arteries
CPT/HCPCS: 72125

== ENCOUNTER → 2019-07-30 | Outpatient (CLI) | payer MEDICARE, OTHER ==
[2019-02-10 11:00] VITALS: BP 166/62
[~2019-07-30] MED LIST changes: +IOHEXOL 300 MG/ML 50 ML VIAL. IT ONE; +LIDOCAINE 1% Multi-Dose 20 ML VIAL. ID ONE
--- NOTE | 2019-07-30 16:24 | KCIC ---
Cervical myelogram History: Cervical radiculopathy COMPARISON: April 24, 2019 radiographs Technique: Patient was informed of the risks to include pain, infection, bleeding, seizures, allergic reaction, nerve root injury. All questions were answered. Patient signed a written consent form for a cervical myelogram. The patient was placed in a prone oblique position. The patient was prepped and draped in the usual sterile fashion. 1% lidocaine was utilized for local anesthesia at the anticipated site of puncture of the right L2-L3 interlaminar space. A 19-gauge guiding needle was advanced into the soft tissues. Through the guiding needle, a 25 gauge Moni needle was advanced until there was return of cerebral spinal fluid. Approximately 10 cc Omnipaque 300 were then injected during fluoroscopic visualization. The needles were removed. Patient was repositioned so as to allow for the flow of contrast into the cervical spine. Fluoroscopic spot images and lateral radiograph were acquired. The patient was then transferred to the CT department for CT examination of the cervical spine. There were no immediate complications. Fluoroscopy time: 35 seconds, 6 images Findings: There again has been anterior cervical fusion at C5-C6. There is no evidence of myelographic block. There are likely some small anterior extradural defects such as C2-3 and C3-4, limited characterization of more inferior levels due to overlying bone and soft tissues. There is multilevel cervical facet degenerative change. There is atherosclerotic calcification of the carotid arteries in the neck bilaterally. As seen on the injection images, there is multilevel lumbar degenerative disc disease and spondylosis. Impression: 1. There again has been anterior cervical fusion at C5-C6. 2. There is multilevel cervical facet degenerative change. Electronically signed by: Kennedy Barth MD (07/30/2019 4:21 PM) [facility]
--- NOTE | 2019-07-30 17:06 | KCIC ---
Cervical spine CT without contrast History: Previous surgery, bilateral cervical radiculopathy Technique: Noncontrast CT imaging was performed of the cervical spine. Multiplanar images are reviewed. Exposure: One or more of the following individualized dose reduction techniques were utilized for this examination: 1. Automated exposure control 2. Adjustment of the mA and/or kV according to patient size 3. Use of iterative reconstruction technique. Comparison: January 31, 2019 exam; July 16, 2019 Findings: Cervical vertebral body stature is overall maintained. As seen on recent exam, there is anterior cervical fusion hardware at C5-6 and also C5-6 interbody graft, interbody fusion not apparent. There is again moderate degenerative disc disease at C6-7 and to lesser degree at C2-C3 and C7-T1, minimally at C3-C4. AP alignment is unchanged, negligible posterior subluxation C6 relative to C7. There is adequate alignment of the lateral masses of C1 relative to C2. Occipital condylar-C1 articulation is maintained. Atlantoaxial distance is within normal limits, associated degenerative change. There is atherosclerotic calcification of the carotid arteries in the neck bilaterally. C2-3: There is again minimal disc osteophyte complex and shallow protrusion. Central canal is again narrowed to about 7 to 8 mm. There is mild facet degenerative change bilaterally. Neural foramina are overall adequate. C3-C4: There is again disc osteophyte complex and shallow central protrusion. Central canal is narrowed to about 8 mm. There is again [id number] facet degenerative change bilaterally. There is uncovertebral degenerative change greater on the left. There is again mild narrowing of the left neural foramen, right neural foramen overall adequate. C4-C5: There is again fairly severe left facet degenerative change, to lesser degree on the right. There is again very shallow posterior central protrusion. Central canal is borderline about 10 mm. There is mild neural foramina compromise bilaterally. C5-C6: There are residual minimal posterior osteophytes, central canal minimally narrowed about 9 to 10 mm, previously greater degree of spinal stenosis by extrusion at this level on the January 2019 exam. There is again moderate to severe facet degenerative change bilaterally greater on the right. There is uncovertebral degenerative change. There is residual moderate to severe left and moderate right neural foramina compromise, decreased on the left in the interval. C6-C7: There is again minimal disc osteophyte complex more eccentric to the left lateral recess. Central canal is borderline about 10 mm, again [id number] narrowing of the far left lateral recess. There is again fairly severe facet degenerative change bilaterally. There is uncovertebral degenerative change bilaterally, left greater than right. There are again larger osteophytes/disc osteophyte complex in the distal left neural foramen and proximal extraforaminal region. There is again severe narrowing of the left neural foramen greater distally. There is minimal narrowing of the right neural foramen. C7-T1: Spinal canal and neural foramina are adequate. Impression: 1. As seen on more recent exam, there is intact anterior cervical fusion hardware at the C5-6 level, also interbody graft at this level. 2. There is multilevel facet and uncovertebral degenerative change contributing to multilevel cervical neural foramina compromise as stated, more significant narrowing on the left at C6-7 and left greater than right at C5-C6. 3. There is central canal stenosis on the order of 7-8 mm at C2-3 and to a somewhat lesser degree at C3-4 as seen previously. There is [id number] narrowing of the far left lateral recess at C6-7 as seen previously. There is interval decreased, residual mild spinal stenosis at C5-6 by osteophytes. 4. There is multilevel cervical degenerative disc disease greatest at C6-7. 5. There is atherosclerotic calcification of the carotid arteries in the neck bilaterally. Electronically signed by: Kennedy Barth MD (07/30/2019 5:03 PM) [email or web address]
== END | disposition home or self-care (01) ==
LOC: KCIC 11:57
PROVIDERS: ATTEND Neurological Surgery
DX: M50.13 Cervical disc disorder with radiculopathy, cervicothoracic region (principal); M51.36 Other intervertebral disc degeneration, lumbar region; M25.78 Osteophyte, vertebrae; M48.02 Spinal stenosis, cervical region; I25.10 Atherosclerotic heart disease of native coronary artery without angina pectoris
CPT/HCPCS: 72126; 72240; Q9967

== ENCOUNTER → 2019-08-09 | Outpatient (CLI) | payer MEDICARE ==
[2019-02-10 11:00] VITALS: BP 166/62
[~2019-08-09] MED LIST changes: +HYDR-2761 PO; +IOHEXOL 180 MG/ML 10 ML VIAL. ONE; -IOHEXOL 300 MG/ML 50 ML VIAL. IT ONE; -LIDOCAINE 1% Multi-Dose 20 ML VIAL. ID ONE; +methylPREDNISolone ACETATE 40 MG/ML VIAL. ONE; +methylPREDNISolone ACETATE 80 MG/ML VIAL. ONE
--- NOTE | 2019-08-10 00:36 | PAIN ---
DATE OF SERVICE: 08/09/2019 INITIAL CONSULTATION FOR PAIN CLINIC CHIEF COMPLAINT: Neck and bilateral upper extremity pain. HISTORY OF PRESENT ILLNESS: This is a 68-year-old male who presents with history of pain in the base of the neck and bilateral upper extremities since about 2008. The patient underwent an anterior cervical diskectomy and fusion in 2014 with good results initially, but the pain returned a few months later and it has been much worse over the past 2 months now. The patient reports pain in the base of the neck radiating to bilateral upper extremities, right essentially equal to left without any loss of function, but significant fatigability in the upper extremities as well as difficulty with fine motor movements such as buttoning a shirt with his hands, especially with his right hand as he is right hand dominant. The patient reports he has had physical therapy in the past and doing some stretching and strengthening exercises, but no formal physical therapy recently and has been exercising on his own, also taking hydrocodone, which does decrease the pain some as does Advil, which helps a small amount. The patient reports it awakens him from sleep about 3 times a night, can affect his bowel or bladder control, but no loss of continence. The patient reports it does affect his ability to walk at times, but he is not using any assistive devices. No falls or stumbles. The patient reports his disability rating from 0-10, 10 being the worst, is a 10 in all categories, family and home responsibility, recreation, social activity, sexual behavior, occupation, self-care and life support activities. The patient did have MRI scan of the cervical spine and myelogram of cervical spine also showing some degenerative disk disease as well as spinal stenosis with previous intact cervical fusion hardware at C5-C6, interbody graft at that level as well with multilevel facet and uncovertebral degenerative change with cervical neural foraminal compromise, more significant narrowing on the left at C6-C7 and left greater than right at C5-C6 with spinal canal stenosis on the order 7-8 mm at the C2-C3 and somewhat lesser degree at C3-C4. PAST MEDICAL HISTORY: Significant for hypertension, diabetes, hearing loss, previous coronary artery bypass and reflux. PAST SURGICAL HISTORY: Other surgeries include a cochlear implant 2009, cervical diskectomy and fusion in 2014. CURRENT MEDICATIONS: Include insulin, hydrocodone, Aciphex, aspirin, metformin, rosuvastatin, tamsulosin and hydrochlorothiazide also multivitamins. ALLERGIES: The patient has no known drug allergies. FAMILY HISTORY: Significant for hypertension. SOCIAL HISTORY: The patient drinks alcohol about 3 drinks a week on average. Does not smoke, does not use any illegal, illicit or recreational drugs. He is single, lives locally in [place], [place]. REVIEW OF SYSTEMS: The patient's review of systems is positive for those items mentioned in history of present illness. All systems reviewed and otherwise negative. It is complete, full and well documented on the patient's chart. PHYSICAL EXAMINATION: VITAL SIGNS: The patient's blood pressure 166/75, pulse 73, respirations 18, temperature 97.9 degrees Fahrenheit, height is 5 feet 10 inches, weight is 182 pounds. GENERAL: The patient is awake, alert, oriented, appropriate, very pleasant demeanor. HEENT: Head shows normocephalic, atraumatic. Extraocular movements are intact and symmetrical. Oral cavity: Mucous membranes moist and pink. Dentition is intact. NECK: Shows anterior throat supple without palpable lymphadenopathy noted. Swallow reflex symmetrical. CHEST: Shows normal on inspection. Breath sounds clear to auscultation bilaterally. HEART: Shows S1, S2 clear. No murmurs auscultated. ABDOMEN: Soft, nontender, nondistended. No palpable organomegaly is noted. No rebound or guarding demonstrated. BACK: Shows spine grossly in the midline. Cervical paraspinous muscle shows symmetrical on inspection, on palpation shows some moderate tenderness diffusely, but only diffusely without significant radiation. The patient does show good rotational motion of cervical spine, both laterally as well as extension and flexion without significant difficulty. The patient's back shows good forward flexion and rearward extension as well without significant increase in pain. EXTREMITIES: The patient's upper extremities show deep tendon reflexes at 2+ in the biceps and triceps tendons. Motor exam is strong with 5/5 plaster mold maker strength, bicep and tricep flexion symmetrical. Peripheral pulses are 2+ radial distribution. No peripheral edema is noted. Shoulder shrug is strong and intact without loss of strength on resistance with some minor pain in the base of the neck bilaterally and into the shoulders, but not into the upper extremities. This is true with abduction of shoulder to 90 degrees without loss of strength on resistance, but with good strength bilaterally. The patient's skin shows warm and dry, good turgor. No edema. No sores, rashes or bruising throughout. Also the patient does have cochlear implant with external battery on the left. IMPRESSION: 1. This is a 68-year-old male with approximate 2-month history of increasing pain recently in the base of neck and upper extremities bilaterally in a radicular fashion. 2. MRI and myelogram of cervical spine as noted. 3. Hypertension. 4. Diabetes. PLAN: Options were discussed with the patient including conservative medical managements, physical therapies and interventional techniques. He would like to pursue interventional techniques. We discussed a cervical epidural steroid injection using description as well as anatomical models to describe the procedure. Risks were then discussed including, but not limited to bleeding, infection, possibility of epidural hematoma, subsequent neurological compromise, dural puncture, headaches, spinal cord and/or nerve damage, side effects of steroid medication and poor results regarding pain control. The patient understands and wished to proceed. The patient will return to clinic in approximately 2 weeks for followup. He was counseled on return appointment, activity level and side effects to be aware of. DIAGNOSES: Cervical radiculopathy with cervical degenerative disk disease, cervical spinal stenosis and post-cervical laminectomy syndrome. PROCEDURE: Cervical epidural steroid injection, translaminar approach C6-C7 level using C-arm fluoroscopic guidance under sterile prep and drape using local anesthetic. MEDICATION INJECTED: A total of 120 mg Depo-Medrol plus 5 mL of preservative-free normal saline and 2 mL of contrast. CONDITION AT DISCHARGE: Stable. The patient tolerated the procedure well, had no complications. KATHY OLMOS MD DR: FALLON/gina JOB#: [id number] / [id number]
== END ==
LOC: PNCL 13:26
PROVIDERS: ATTEND Anesthesiology
DX: M50.123 Cervical disc disorder at C6-C7 level with radiculopathy (principal); I10 Essential (primary) hypertension; E11.9 Type 2 diabetes mellitus without complications; K21.9 Gastro-esophageal reflux disease without esophagitis; Z98.890 Other specified postprocedural states; Z95.1 Presence of aortocoronary bypass graft; Z79.84 Long term (current) use of oral hypoglycemic drugs
CPT/HCPCS: 62321; J1030; J1040; Q9965

== ENCOUNTER → 2019-08-23 | Outpatient (CLI) | payer MEDICARE ==
[2019-02-10 11:00] VITALS: BP 166/62
--- NOTE | 2019-08-23 19:59 | PN ---
DATE: 08/23/2019 PROGRESS NOTE FOR PAIN CLINIC DIAGNOSES: Cervical radiculopathy with cervical degenerative disk disease, cervical spinal stenosis and post-cervical laminectomy syndrome. HISTORY OF PRESENT ILLNESS: The patient is a 68-year-old male who returns for followup status post cervical epidural steroid injection x 1. The patient reports only minimal decrease in pain in his neck and bilateral upper extremities. The patient reports still significant pain with any activity, weight lifting any type of weightbearing with the upper extremities, rather patient reports it is keeping him awake at night, occasionally awakens him, but not most nights. The patient reports his pain is a 10 on a scale of 10 at all times, average, worst and least and has tingling and burning sensation in the base of neck and shoulders, upper extremities bilaterally, radiating, constant, becoming severe. The patient reports no new motor or sensory deficits, no new changes. PHYSICAL EXAMINATION: VITAL SIGNS: The patient's blood pressure is 173/77, pulse 74, respirations 20, temperature 98.2 degrees Fahrenheit, weight is 180 pounds. GENERAL: The patient is awake, alert, oriented, appropriate, very pleasant demeanor. HEENT: Head shows normocephalic, atraumatic. Extraocular movements are intact and symmetrical. Oral cavity: Mucous membranes moist and pink. Dentition is intact. NECK: Shows anterior throat supple without palpable lymphadenopathy noted. Swallow reflex symmetrical. CHEST: Shows normal on inspection. Breath sounds clear bilaterally. HEART: Shows S1, S2 clear. No murmurs auscultated. ABDOMEN: Soft, nontender, nondistended. BACK: Shows spine grossly in the midline. Normal appearing thoracic kyphosis and lumbar lordotic curvature. Cervical lordotic curvature is slightly flattened. Cervical paraspinous muscle shows symmetrical with inspection, on palpation shows some moderate tenderness diffusely bilaterally, but only diffusely in the low cervical paraspinous muscles without radiation. The patient does show good rotational motion of cervical spine, both laterally as well as extension and flexion without significant difficulty. EXTREMITIES: Upper extremities show deep tendon reflexes 2+ in the biceps and triceps tendons. Motor exam is strong with billet worker strength rated at 5/5 and equal. Peripheral pulses are 2+. No peripheral edema is noted. Options were discussed with the patient. The patient's old chart was reviewed, his current medication regimen updated. Current review of systems updated today as well. We will proceed with a second in a series of cervical epidural steroid injection today with fluoroscopic guidance. Risks were again discussed including, but not limited to bleeding, infection, possibility of epidural hematoma, subsequent neurological compromise, dural puncture, headaches, spinal cord and/or nerve damage, side effects of steroid medication and poor results regarding pain control. The patient understands and wished to proceed. The patient will return to clinic in approximately 2 weeks for follow up. He was counseled on return appointment, activity level and side effects to be aware of. DIAGNOSES: Cervical radiculopathy with cervical degenerative disk disease, cervical spinal stenosis and post-cervical laminectomy syndrome. PROCEDURE: Cervical epidural steroid injection, translaminar approach C6-C7 level using C-arm fluoroscopic guidance under sterile prep and drape using local anesthetic. MEDICATION INJECTED: A total of 120 mg Depo-Medrol plus 5 mL of preservative-free normal saline and 2 mL of contrast. CONDITION AT DISCHARGE: Stable. The patient tolerated procedure well, had no complications. KATHY OLMOS MD DR: FALLON/gina JOB#: [id number] / [id number]
== END ==
LOC: PNCL 14:24
PROVIDERS: ATTEND Anesthesiology
DX: M50.123 Cervical disc disorder at C6-C7 level with radiculopathy (principal); M96.1 Postlaminectomy syndrome, not elsewhere classified; M48.02 Spinal stenosis, cervical region
CPT/HCPCS: 62321; J1030; J1040; Q9965

== ENCOUNTER → 2020-03-06 | Outpatient (CLI) | payer MEDICARE ==
[2019-02-10 11:00] VITALS: BP 166/62
[~2020-03-06] MED LIST changes: -IOHEXOL 180 MG/ML 10 ML VIAL. ONE; -LISI1TAB19 PO; +LISI1TAB37 PO; -methylPREDNISolone ACETATE 40 MG/ML VIAL. ONE; -methylPREDNISolone ACETATE 80 MG/ML VIAL. ONE
--- NOTE | 2020-03-06 17:28 | RAD ---
Cervical spine CT without contrast History:Cervical radiculopathy Technique: Noncontrast CT imaging was performed of the cervical spine. Multiplanar images are reviewed. Exposure: One or more of the following individualized dose reduction techniques were utilized for this examination: 1. Automated exposure control 2. Adjustment of the mA and/or kV according to patient size 3. Use of iterative reconstruction technique. Comparison: 07/30/2019 Findings: There is again anterior metallic plate and screws at C5-6, also C5-6 interbody graft although interbody fusion not apparent. Cervical vertebral body stature and AP alignment are maintained. There is again moderate degenerative disc disease C6-7, to a lesser degree at C2-3, C3-4, and C7-T1. No acute cervical spine fracture is identified. Atlantoaxial distance is within normal limits. Occipital condylar-C1 articulation is preserved. There is adequate alignment of the lateral masses of C1 relative to C2. There is some atherosclerotic calcification of the carotid arteries in the neck bilaterally. There is again degree of diffuse cervical spinal stenosis on developmental basis. C2-3: There is again disc osteophyte complex and superimposed protrusion with resultant central canal stenosis estimated about 6 to 7 mm. Neural foramina are adequate. There is facet degenerative change. C3-4: There is again disc osteophyte complex and protrusion, central canal likely narrowed to about 8 mm. There is again facet degenerative change, also uncovertebral degenerative change greater on the left. There is probable [id number] narrowing of the left neural foramen. C4-5: There is again bilateral facet degenerative change. There is likely shallow posterior protrusion as seen previously, likely borderline central canal stenosis about 7 mm. There is probable mild bilateral neural foramina compromise. C5-6: There is again overall borderline to mild narrowing of the central canal by posterior osteophytes. There is bilateral facet and uncovertebral degenerative change. There is fairly severe left and likely moderate right neural foramina compromise. C6-7: There is again disc osteophyte complex, likely borderline central canal stenosis and degree of narrowing of the far left lateral recess. There is left greater than right uncovertebral degenerative change, also bilateral facet degenerative change. There is again severe narrowing of the left neural foramen, mild narrowing on the right. C7-T1: Neural foramina and spinal canal are adequate. Impression: 1. Findings are fairly similar compared with previous July 2019 exam. There is again anterior cervical fusion hardware at C5-6, interbody graft at this level although interbody fusion not apparent. There is other cervical degenerative disc disease greatest at C6-7, also multilevel spondylosis. There is spinal stenosis about 6 to 7 mm at C3-4, to a somewhat lesser degree at C3-4 and C4-5 as described. 2. Facet and uncovertebral degenerative change contributes to multilevel cervical neural foramina compromise, more significant narrowing on the left at C5-6 and C6-7. Electronically signed by: Kennedy Barth MD (03/06/2020 5:25 PM) [id number]
--- NOTE | 2020-03-06 18:25 | RAD ---
EXAM: Limited bone scintigraphy.. HISTORY: Neck pain. COMPARISON: 03/06/2020 CT. FINDINGS: 25 mCi Tc-99m MDP was administered intravenously. Scintigraphic images of the cervical spine were obtained in multiple projections. There is focal uptake within the lower cervical spine corresponding with anterior cervical discectomy and fusion changes at C5-6. There is no significant uptake elsewhere in the cervical spine. Uptake at the sternoclavicular and acromioclavicular joints is consistent with osteoarthritis. Uptake along the superior alveolar ridge is likely odontogenic. There is no evidence of scintigraphic osseous metastatic disease. IMPRESSION: 1. Moderate to intense uptake at the site of C5-6 anterior cervical discectomy and fusion is greater than expected given chronicity placement. This is consistent with residual motion or infection. Electronically signed by: Dasha Eaton MD (03/06/2020 6:22 PM) [facility]
== END | disposition home or self-care (01) ==
LOC: NM 03-04 09:38
PROVIDERS: ATTEND Neurological Surgery
DX: M47.22 Other spondylosis with radiculopathy, cervical region (principal); M50.323 Other cervical disc degeneration at C6-C7 level; M48.02 Spinal stenosis, cervical region; M25.78 Osteophyte, vertebrae; Z96.1 Presence of intraocular lens
CPT/HCPCS: 72125; 78300; A9503

== ENCOUNTER → 2020-03-31 | Outpatient (CLI) | payer MEDICARE ==
[2019-02-10 11:00] VITALS: BP 166/62
[~2020-03-31] MED LIST changes: +AMLO-186 PO; -AMLO5TAB10 PO; +DOCU-153 PO; +DULO60CA6 PO; +METH750T2 PO; +OXYC10TA46 PO; +OXYC1TAB15 PO
[2020-03-31 15:19] LABS: BASO # 0.1 x10^3/uL (0.0-0.2); BASO % 1 % (0-3); EOS # 0.2 x10^3/uL (0.0-0.7); EOS % 2 % (0-3); HEMATOCRIT 36.9 % (39.0-53.0); HEMOGLOBIN 12.6 g/dL (13.0-17.5); LYMPH # 3.2 x10^3/uL (1.0-4.8); LYMPH % 31 % (24-48); MEAN CORPUSCULAR HEMOGLOBIN 31 pg (25-35); MEAN CORPUSCULAR HGB CONC 34 g/dL (31-37); MEAN CORPUSCULAR VOLUME 89 fL (79-100); MONO # 0.9 x10^3/uL (0.0-1.1); MONO % 9 % (0-9); NEUT # 5.8 x10^3/uL (1.8-7.7); NEUT % 57 % (31-73); PLATELET COUNT 272 x10^3/uL (140-400); RED BLOOD COUNT 4.15 x10^6/uL (4.30-5.70); RED CELL DISTRIBUTION WIDTH 13.3 % (11.5-14.5); WHITE BLOOD COUNT 10.3 x10^3/uL (4.0-11.0)
[2020-03-31 15:32] LABS: PROTHROMBIN TIME PATIENT 12.7 SEC (11.7-14.0)
[2020-03-31 15:35] LABS: ALBUMIN/GLOBULIN RATIO 1.2 (1.0-1.7); CALCIUM 8.9 mg/dL (8.5-10.1); CREATININE 1.4 mg/dL (0.7-1.3); GFR 50.2; POTASSIUM 3.3 mmol/L (3.5-5.1); TOTAL BILIRUBIN 0.4 mg/dL (0.2-1.0); TOTAL PROTEIN 7.3 g/dL (6.4-8.2)
--- NOTE | 2020-03-31 15:37 | EKG ---
[facility] [address] [place] [address] Test Date: 2020-03-31 Test Time: 15:29:51 Pat Name: NAZ FLORES Department: Room: Gender: M [employer]: : 1950 Requested By: BENNY CRAMER Order Number: [id number] Reading MD: Sohail Macario Measurements Intervals [place] Rate: 61 P: 41 WI: 162 QRS: 38 QRSD: 102 T: 58 QT: 430 QTc: 434 Interpretive Statements SINUS RHYTHM BORDERLINE INCOMPLETE RIGHT BUNDLE BRANCH BLOCK Electronically Signed On 04-01-2020 10:27:16 CDT by Sohail Macario
[2020-04-01 03:08] LABS: HEMOGLOBIN A1C 7.7 % (4.8-5.6)
== END ==
LOC: SURGPAT 14:45
PROVIDERS: ATTEND Neurological Surgery
DX: Z01.812 Encounter for preprocedural laboratory examination (principal); M96.0 Pseudarthrosis after fusion or arthrodesis; M47.22 Other spondylosis with radiculopathy, cervical region; Z20.828 Contact with and (suspected) exposure to other viral communicable diseases
CPT/HCPCS: 36415; 80053; 83036; 85025; 85610; 85730; 87641; 93005; U0003

== ENCOUNTER → 2020-05-12 | Outpatient (CLI) | payer MEDICARE ==
[2020-04-10 17:49] VITALS: BP 176/68
--- NOTE | 2020-05-12 16:59 | RAD ---
INDICATION: Carotid bruit COMPARISON: None. TECHNIQUE: Color, grayscale and doppler ultrasound images obtained of the carotid system bilaterally. Percent stenosis is estimated using criteria that correlates with NASCET methodology. FINDINGS: Peak systolic velocities are as follows in cm/s: Right Carotid System: CCA: 68 ICA: 119 ECA 220 ICA/CCA Ratio 1.2 Left Carotid System: CCA: 138 ICA: 142 ECA 242 ICA/CCA Ratio 0.9 Vertebral arteries are antegrade bilaterally. Multifocal plaque within the carotid system bilaterally. IMPRESSION: * No hemodynamically significant stenosis of the internal carotid arteries bilaterally. * Elevated velocities within the external carotid arteries therefore a site of narrowing may be present. Electronically signed by: Graeme Cedeño MD (05/12/2020 4:56 PM) [id number]
--- NOTE | 2020-05-12 17:51 | RAD ---
MR#: [id number] Date of Study: 05/12/2020 Ordering Physician: VIC WORKMAN, Referring Physician: VIC WORKMAN, Tech: Violette Humphrey RT R, [facility] APPROVED REPORT Patient Location : OUT-PATIENT Indications Lower Extremity Pain : Bilateral Deep System Deep Venous Thrombosis present : No Deep Venous Reflux present : No Findings Grayscale images demonstrate no gross evidence of thrombus in the saphenofemoral junctions. The bila teral greater saphenous veins did not demonstrate any evidence of reflux. The right great saphenous vein measures 4.4 mm the left great saphenous vein measures 5 mm. The right lesser saphenous vein does not show any evidence of reflux and it measures approximately 2. 7 mm. The left lesser saphenous vein is not well visualized and appears to be consistent with prior thrombosis. Critical Notification Critical Value: No <Conclusion> 1. No evidence of reflux in the bilateral greater and right lesser saphenous veins. 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 Signed by : Vci Workman, Electronically Approved : 05/12/2020 17:51:06
== END ==
LOC: US 13:13
PROVIDERS: ATTEND Internal Medicine Cardiovascular Disease
DX: I82.812 Embolism and thrombosis of superficial veins of left lower extremity (principal); R09.89 Other specified symptoms and signs involving the circulatory and respiratory systems
CPT/HCPCS: 93880; 93970

== ENCOUNTER → 2020-06-17 | Outpatient (CLI) | payer MEDICARE ==
[2020-04-10 17:49] VITALS: BP 176/68
[~2020-06-17] MED LIST changes: -HYDR50TA6 PO; +HYDR50TA9 PO; +METH-562 PO; -METH750T2 PO
--- NOTE | 2020-06-23 09:17 | RAD ---
MR#: [id number] Date of Study: 06/17/2020 Ordering Physician: VIC WORKMAN, Referring Physician: VIC WORKMAN, Tech: Trenton Kate MBA, RDMS, RVT, RDCS, RTR APPROVED REPORT Patient Location: OUT-PATIENT Indications Claudication:Bilaterally Findings Abnormal bilateral ABIs with the following results: Right arm 148, left arm 139 Right ankle PT 87, left ankle PT 99 Index 0.58 on the right side and 0.66 on the left Critical Notification Critical Value: No <Conclusion> 1. Severe bilaterally abnormal ABIs as noted above. Signed by : Vic Workman, Electronically Approved : 06/23/2020 09:17:17
--- NOTE | 2020-06-23 09:19 | RAD ---
MR#: [id number] Date of Study: 06/17/2020 Ordering Physician: VIC WORKMAN, Referring Physician: VIC WORKMAN, Tech: Trenton Kate MBA, RDMS, RVT, RDCS, RTR APPROVED REPORT Patient Location: OUT-PATIENT Indications Claudication:Bilaterally VELOCITY AND DOPPLER WAVEFORM ANALYSIS RIGHT cm/secWaveformSeverity LEFT cm/secWaveform Severity dCFA 145.0BiphasicdCFA 132.0Monophasic Prof Fem Art. 71.0MonophasicProf Fem Art. 55.0Monophasic Fem Art Prox. 66.0MonophasicFem Art Prox. 50.0Monophasic Fem Art Mid. OccludedFem Art Mid. 208.0Monophasic Fem Art Dist. 55.0MonophasicFem Art Dist. 87.0Monophasic Pop Art(Fossa) 34.0MonophasicPop Art(AK) 49.0Monophasic TYPING TEACHER Prox. 57.0MonophasicPTA Prox. 37.0Monophasic TYPING TEACHER Dist. 28.0MonophasicPTA Dist. 35.0Monophasic Per Art Mid. 17.0MonophasicPer Art Mid. 25.0Monophasic JUAN C Prox. 16.0MonophasicATA Prox. 26.0Monophasic DPA OccludedDPA 34Monophasic Findings Grayscale images of the bilateral lower extremity arterial vessels reveals diffuse moderate atheroscl erotic plaque with severe plaque localized in the areas of the bilateral superficial femoral arteries . On the right side the mid SFA is occluded. There are diminished monophasic waveforms below the knee consistent with more proximal occlusion. There is three-vessel runoff below the knee but with decrea sed velocities. On the left side there is likely a greater than 50% stenosis involving the mid SFA. Otherwise there is three-vessel runoff below the knee although with monophasic waveforms and diminished velocities. Critical Notification Critical Value: No <Conclusion> 1. Severe bilateral SFA disease Signed by : Vic Workman, Electronically Approved : 06/23/2020 09:19:16
== END ==
LOC: US 08:42
PROVIDERS: ATTEND Internal Medicine Cardiovascular Disease
DX: I70.293 Other atherosclerosis of native arteries of extremities, bilateral legs (principal)
CPT/HCPCS: 93922; 93925

== ENCOUNTER → 2020-07-07 | Outpatient (CLI) | payer MEDICARE ==
[2020-04-10 17:49] VITALS: BP 176/68
[~2020-07-07] MED LIST changes: +HYDR50TA6 PO; -HYDR50TA9 PO; -METH-562 PO; +METH750T2 PO
--- NOTE | 2020-07-07 13:13 | KCIC ---
EXAM: Cervical spine, 3 views. HISTORY: Fusion. COMPARISON: 07/30/2019 FINDINGS: 3 views of the cervical spine are obtained. There is instrumented anterior spinal fusion an d interbody fusion at C5-C6 and instrumented posterior spinal fusion at C5-T1. There is mild retrolis thesis of C2 on C3. There is multilevel facet arthropathy. There is calcified scar plaque involving t he carotid bifurcations. There are median sternotomy wires. IMPRESSION: 1. Instrumented fusion at C5-T1, described above. There is no evidence of instrumentation loosening. 2. No acute osseous finding. Electronically signed by: Stephanie Ruiz MD (07/07/2020 1:10 PM) [id number]
== END ==
LOC: KCIC 12:44
PROVIDERS: ATTEND Neurological Surgery
DX: M47.812 Spondylosis without myelopathy or radiculopathy, cervical region (principal); M43.12 Spondylolisthesis, cervical region; M43.23 Fusion of spine, cervicothoracic region; I65.23 Occlusion and stenosis of bilateral carotid arteries
CPT/HCPCS: 72040

== ENCOUNTER 2020-12-11 18:15 | Inpatient (IN) | payer MEDICARE ==
[~2020-12-11] VITALS: Ht 177.8 cm; Wt 81.8 kg
[~2020-12-11 18:15] MED LIST changes: -HYDR50TA6 PO; +HYDR50TA9 PO; +METH-562 PO; -METH750T2 PO
[2020-12-11] MEDS ORDERED: VANCOMYCIN 2 GM in IV NORMAL SALINE 500ML BAG 500 ML IV ONE (21:15)
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
[2020-12-11 21:46] LABS: BASO # 0.1 x10^3/uL (0.0-0.2); BASO % 1 % (0-3); EOS # 0.1 x10^3/uL (0.0-0.7); EOS % 1 % (0-3); LYMPH # 2.5 x10^3/uL (1.0-4.8); LYMPH % 21 % (24-48); MEAN CORPUSCULAR HEMOGLOBIN 30 pg (25-35); MEAN CORPUSCULAR HGB CONC 34 g/dL (31-37); MEAN CORPUSCULAR VOLUME 88 fL (79-100); MONO # 1.2 x10^3/uL (0.0-1.1); MONO % 10 % (0-9); NEUT # 7.9 x10^3/uL (1.8-7.7); NEUT % 67 % (31-73); PLATELET COUNT 256 x10^3/uL (140-400); RED BLOOD COUNT 4.33 x10^6/uL (4.30-5.70); RED CELL DISTRIBUTION WIDTH 13.4 % (11.5-14.5); WHITE BLOOD COUNT 11.9 x10^3/uL (4.0-11.0)
--- NOTE | 2020-12-11 21:51 | RAD ---
XR FOOT_RIGHT 3 VIEWS History: Reason: pain swelling / Spl. Instructions: / History: Technique: 3 views right foot Comparison: None. Findings: Normal alignment. No fracture. Soft tissues unremarkable. Postop changes talocalcaneal arthrodesis. P lantar calcaneal spur. Mild midfoot DJD. Vascular calcifications. Impression: 1. No acute osseous abnormality. 2. Postoperative changes of the hindfoot. 3. Mild midfoot DJD. Electronically signed by: Reji Olivas DO (12/11/2020 9:49 PM) [facility]
[2020-12-11 22:03] LABS: CREATININE 1.5 mg/dL (0.7-1.3); GFR 46.3; POTASSIUM 3.4 mmol/L (3.5-5.1)
[2020-12-11 22:16] LABS: ALBUMIN/GLOBULIN RATIO 1.1 (1.0-1.7); C-REACTIVE PROTEIN 7.7 mg/L (0-3.3); TOTAL BILIRUBIN 0.6 mg/dL (0.2-1.0); TOTAL PROTEIN 7.5 g/dL (6.4-8.2)
[2020-12-11] MEDS ORDERED: ONDANSETRON PF 4 MG/2 ML VIAL. IV PRN (22:45)
[2020-12-12] VITALS (7 sets, daily range): BP systolic 146–193; BP diastolic 51–74
[2020-12-12] MEDS ORDERED: HYDROcodone/APAP 5/325MG 1 TAB TABLET PO ONE (00:30)
[2020-12-12] MEDS ORDERED: PREG100C PO (01:01)
[2020-12-12] MEDS ORDERED: oxyCODONE/APAP 5/325 1 TAB TABLET PO PRN (06:30)
--- NOTE | 2020-12-12 07:23 | PDOC1 ---
H & P. DATE OF SERVICE: DATE: 12/12/20 TIME: 07:13 HPI: Mr. Rea is a 70 year old male with history of diabetes, complicated by chronic kidney disease stage IIIA, peripheral artery disease hypertension, hyperlipidemia, coronary disease status post CABG, GERD, BPH, opioid dependence who presents to the ED with 1 week history of right foot pain and swelling, worsening over that timeframe. Pain is located on the lateral aspect of the foot as well as the dorsal aspect. Patient denies nausea, vomiting, fever, chills, chest pain, shortness of breath, abdominal pain. Labs remarkable for mild leukocytosis, elevated CRP and ESR. Creatinine is 1.5, which is consistent with his baseline. He was admitted for further evaluation and management. He was given vancomycin in the ED. ROS: Constitutional: Denies fever, fatigue, chills HEENT: Denies sore throat, vision changes Cardio: Denies chest pain, dyspnea with exertion, syncope, palpitations, edema Pulmonary: Denies shortness of breath, cough, wheezing GI: Denies nausea, vomiting, diarrhea, constipation : Denies dysuria, frequency, urgency, incontinence Skin: Denies new lesions Neuro: Admits diabetic peripheral neuropathy MSK: R foot pain ED COURSE: As above PMH: As above FAMILY HX: Noncontributory SOCIAL HX: Non-smoker, no significant alcohol or drug use. SURGICAL HX: CABG 2012, cervical fusion in 2019, ankle surgery in 2018, tonsillectomy. MEDS: Reviewed and reconciled ALLERGIES: Reviewed PE: Alert, oriented, no acute distress EOMI, sclera non-icteric Neck supple RRR, no murmur CTAB, no wheezes, crackles or rhonchi Soft, NT, ND, normal bowel sounds R dorsal foot with erythema on lateral aspect of the foot, tender and warm to touch Blister with likely underlying R lateral foot wound of uncertain depth 1+ dp pulse on R, unable to appreciate posterior tibial No edema, cyanosis. Normal capillary refill. Calm, cooperative, mood/affect within normal limits ASSESSMENT & PLAN: Cellulitis of right foot Blister on lateral plantar R foot with likely underlying R food wound of unknown depth Chronic kidney disease stage IIIa, at baseline Diabetes, mildly uncontrolled, last A1c was 8% Hypertension Peripheral artery disease Hyperlipidemia Coronary artery disease status post CABG GERD BPH Opioid dependence Continue home medications ID consult for antibiotic guidance given chronic kidney disease Home pain medications corrected to hydrocodone 10/325, patient is not taking oxycodone ER Mild hypokalemia, patient taking HCTZ, will decrease dose and add amlodipine. Patient is intolerant of HIRA inhibitors due to lower GFR. Wound care to eval R foot blister/wound Arterial doppler of RLE d/t decreased pulse Justifications for Admission Other Justification RISHI MUNOZ MD Dec 12, 2020 07:23
[2020-12-12] MEDS: MULTIVITAMIN with MINERAL TABLET. PO SCH (07:52)
[2020-12-12] MEDS: DOCUSATE SODIUM 100 MG CAPSULE. PO SCH ×2 (07:52→21:22)
[2020-12-12] MEDS: ASPIRIN CHEWABLE 81 MG TABLET. PO SCH (07:52)
[2020-12-12] MEDS: metFORMIN 500 MG TABLET PO SCH ×2 (07:53→17:49)
[2020-12-12] MEDS: PREGABALIN 50 MG CAPSULE PO SCH ×3 (07:53→21:22)
[2020-12-12] MEDS: hydroCHLOROthiazide 25 MG TABLET PO SCH (07:53)
[2020-12-12] MEDS ORDERED: hydroCHLOROthiazide 25 MG TABLET PO SCH (09:00)
[2020-12-12] MEDS ORDERED: oxyCODONE ER 10 MG TAB.ER.12H PO SCH (09:00)
[2020-12-12] MEDS: DAPTOmycin (GENERIC) IVPB 490 MG in IV NORMAL SALINE 50ML 50 ML IV SCH (11:41)
--- NOTE | 2020-12-12 11:49 | CONS ---
DATE OF CONSULTATION: 12/12/2020 REFERRING PHYSICIAN: Dr. Cruz. REASON FOR CONSULTATION: Right foot deep tissue infection. HISTORY OF PRESENT ILLNESS: A 70-year-old male with history of diabetes, neuropathy, CKD, peripheral arterial disease, hypertension, hyperlipidemia, coronary artery disease, GERD, BPH presented to the ER with complaints of right foot pain and swelling. He felt like he had put his foot on a splinter, pain, swelling, redness started getting worse. He denied any fevers, chills, nausea, vomiting, headache, sore throat, diarrhea, abdominal pain or symptoms. He had a white count of 11.9. Elevated CRP and ESR. The patient has CKD. Creatinine was 1.5. Foot x-ray showed no acute osseous abnormality, postoperative changes of the hindfoot, mild midfoot DJD. The patient received a dose of vancomycin. ID consultation was requested for antibiotic management. Today, the patient basically feels the same. PAST MEDICAL HISTORY: Diabetes with neuropathy, peripheral arterial disease, hypertension, hyperlipidemia, GERD, BPH, status post CABG, history of a left ankle surgery about 4 years ago with hardware in place. FAMILY HISTORY: Noncontributory. SOCIAL HISTORY: Denies smoking, EtOH, or illicit drug use. Lives with at home. PAST SURGICAL HISTORY: Reviewed. ALLERGIES: Reviewed. CURRENT MEDICATIONS: Antibiotics, none. One dose of vancomycin. Other medications reviewed. PHYSICAL EXAMINATION: VITAL SIGNS: Temperature 97.4, pulse 59, respirations 16, blood pressure 172/69, oxygen saturation 96% on room air. GENERAL: Alert, oriented x 3 male lying in bed comfortably, in no acute distress. HEENT: Normocephalic, atraumatic. Anicteric. NECK: Supple, no JVD. LUNGS: Clear bilaterally. No wheezing. HEART: S1, S2. No gallops or murmurs. ABDOMEN: Soft, nontender, nondistended, no guarding. EXTREMITIES: Right foot swelling mainly over the dorsum. There is a blister on the left fifth metatarsal area. No draining sinuses noted. Tenderness and warmth noted. No calf tenderness. NEUROLOGIC: Alert and oriented x 3, grossly nonfocal. PSYCHIATRIC: Calm and cooperative. LABORATORY DATA: WBC 11.9, hemoglobin 13, hematocrit 38, platelets 256. ESR 28. Sodium 140, potassium 3.4, chloride 102, bicarbonate 26, BUN 22, creatinine 1.5; baseline is between 1.4-1.6. Glucose 155. Lactate of 0.6. C-reactive protein 7.7. IMAGING: Foot x-ray as above. Doppler ultrasound arterial is pending at this time. IMPRESSION: 1. Cellulitis of the right foot.Blister with possible underlying callus on the lateral aspect of the right foot, 2. History of right ankle surgery with hardware in place; Concern for deep tissue infection. 3. Chronic kidney disease. 4. Diabetes mellitus with neuropathy, uncontrolled. 5. Hypertension/hyperlipidemia. 6. Peripheral arterial disease. 7. Coronary artery disease, status post bypass. 8. Benign prostatic hypertrophy. RECOMMENDATIONS: 1. Obtain CT of right lower extremity. 2. Start daptomycin and Zosyn. 3. The patient may need Vascular or Ortho consultation. 4. Elevate right lower extremity. 5. Follow up blood cultures. 6. Monitor labs. Thank you, Dr. Cruz, for consulting Infectious Disease to participate in this patient's care. If you have any questions, do not hesitate to contact me. FARHEEN/TAMMIE/BRITTANY DR: Stephanie TID: [id number] MAYI
--- NOTE | 2020-12-12 11:53 | RAD ---
Exam: US DPLX ARTR EXTREM LOWER BILAT History: Reason: decreased pulses, hx of pad, wound / Spl. Instructions: / History: Comparison: Lower extremity arterial ultrasound 06/17/2020. Technique: Grayscale, color, and spectral Doppler ultrasound images of the lower extremity arteries. Findings: Peak systolic velocities (cm/s) and waveforms in the lower extremities: Right: Common femoral artery: 178, monophasic Profunda femoris artery: 112, monophasic Proximal superficial femoral artery: 126, monophasic Mid superficial femoral artery: Occluded Distal superficial femoral artery: Occluded Popliteal artery: 115, monophasic Posterior tibial artery: 63 proximally and 37 distally, monophasic Peroneal artery: 28, monophasic Anterior tibial artery: 35, monophasic Dorsalis pedis artery: 10, monophasic Left: Common femoral artery: 171, monophasic Profunda femoris artery: 95, monophasic Proximal superficial femoral artery: 99, monophasic Mid superficial femoral artery: 42, monophasic Distal superficial femoral artery: 68, monophasic Popliteal artery: 87, monophasic Posterior tibial artery: 54 proximally and 34 distally, monophasic Peroneal artery: 37, monophasic Anterior tibial artery: 88, monophasic Dorsalis pedis artery: 34, monophasic Impression: 1. Peripheral arterial disease bilaterally with abnormal monophasic waveforms throughout both lower e xtremities suspicious for aortoiliac disease. Consider a CT angiogram or conventional angiogram to fu rther evaluate. 2. 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 3. 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 Electronically signed by: Sylvia Hylton MD (12/12/2020 11:51 AM) [id number]
[2020-12-12] MEDS: PIPERACILLIN/TAZOBACTAM 3.375 GM in IV NORMAL SALINE 50ML 50 ML IV SCH ×3 (12:00→23:19)
--- NOTE | 2020-12-12 13:17 | RAD ---
STUDY: CT of right lower extremity without contrast INDICATION: Right foot infection, deep, history of surgery COMPARISON: Right foot radiograph 12/11/2020 TECHNIQUE: Axial CT imaging of the right ankle and foot performed without contrast. Coronal and sagit adryan reformats were obtained. One or more of the following individualized dose reduction techniques were utilized for this examinat ion: 1. Automated exposure control 2. Adjustment of the mA and/or kV according to patient size 3. Use of iterative reconstruction technique. FINDINGS: Bones: There are surgical changes of the talar arthrodesis. Screws traversing the subtalar joint are intact. There is osseous bridging across the joint. A lucent tract just cranial and anterior to the tip of t he more inferolateral screw may be from prior hardware. There is a lucent tract extending from the ti p of the more medial screw to the medial talar dome, also possibly sequela of previously removed hard herring. There are small subchondral cysts in the lateral talar dome. No acute fracture. Mild degenerati ve joint disease of the midfoot. There is no osseous destruction to suggest acute osteomyelitis. Mild thickening of the peroneal tendons and Achilles tendons may reflect tendinopathy. The medial fle xor tendons are grossly intact. There is subcutaneous edema and soft tissue thickening at the anterio r aspect of ankle with small radiopaque densities along the course of the extensor hallucis longus te ndon, which is difficult to visualize in this region but intact distally. Correlate for postoperative changes. The remaining extensor tendons are intact. Mild diffuse subcutaneous edema, greatest dorsal ly and laterally. There is no definite drainable fluid collection. No definite joint effusion. Diffus e muscular atrophy. No soft tissue gas. Vascular calcifications are noted. IMPRESSION: 1. No osseous destruction to suggest osteomyelitis. There is mild diffuse subcutaneous edema. No drai nable fluid collection or soft tissue gas. 2. Surgical changes of subtalar arthrodesis. No definite hardware complication. There are cystic ornelas ges at the lateral talar dome which may be degenerative or osteochondral lesion. Mild degenerative isela int disease of the midfoot. 3. Thickening of the peroneal tendons and Achilles tendon suspicious for tendinopathy. 4. Subcutaneous edema or soft tissue thickening with small radiopaque densities at the anterior tibio talar joint along the extensor hallucis longus tendon. The tendon itself is difficult to visualize in this region but intact distally. Correlate for prior debridement or tendon repair in this region. Electronically signed by: Sylvia Hylton MD (12/12/2020 1:14 PM) [id number]
[2020-12-12] MEDS ORDERED: INSULIN GLARGINE SYRINGE. SQ SCH (21:00)
[2020-12-12] MEDS: LACTOBACILLUS RHAMNOSUS GG 1 CAPSULE. PO SCH (21:22)
[2020-12-12] MEDS: ATORVASTATIN CALCIUM 40 MG TABLET. PO SCH (21:22)
[2020-12-12] MEDS: TAMSULOSIN 0.4 MG CAP.ER.24H. PO SCH (21:22)
[2020-12-12] MEDS: ONDANSETRON PF 4 MG/2 ML VIAL. IVP PRN (23:18)
[2020-12-13 03:00] VITALS: BP 128/68
[2020-12-13] MEDS: PIPERACILLIN/TAZOBACTAM 3.375 GM in IV NORMAL SALINE 50ML 50 ML IV SCH ×4 (05:51→23:34)
[2020-12-13] MEDS: HYDROcodone/APAP 10/325 1 TAB TABLET PO PRN (05:52)
[2020-12-13] MEDS: PREGABALIN 50 MG CAPSULE PO SCH ×4 (05:52→20:52)
[2020-12-13 07:00] VITALS: BP 146/59
--- NOTE | 2020-12-13 08:28 | PDOC ---
Infectious Disease Note Subjective: Subjective Patient feels better today Denies any complaints Vital Signs: Vital Signs Vital Signs Date Time Temp Pulse Resp B/P (MAP) Pulse Ox O2 Delivery O2 Flow Rate FiO2 12/13/20 07:00 98.5 64 18 146/59 (88) 97 Room Air 98.5 Physical Exam: PHYSICAL EXAM GENERAL: Alert, oriented x 3 male lying in bed comfortably, in no acute distress. HEENT: Normocephalic, atraumatic. Anicteric. NECK: Supple, no JVD. LUNGS: Clear bilaterally. No wheezing. HEART: S1, S2. No gallops or murmurs. ABDOMEN: Soft, nontender, nondistended, no guarding. EXTREMITIES: Right foot swelling mainly over the dorsum slightly improved. There is a blister With possible underlying callus on the left fifth metatarsal area. No draining sinuses noted. Tenderness and warmth noted. No calf tenderness. NEUROLOGIC: Alert and oriented x 3, grossly nonfocal. PSYCHIATRIC: Calm and cooperative. Medications: Inpatient Meds: Medications reviewed. Labs: Lab Laboratory Tests Test 12/12/20 12:37 12/12/20 17:42 12/12/20 20:21 Glucose (Fingerstick) 165 mg/dL (70-99) 171 mg/dL (70-99) 168 mg/dL (70-99) Micro CT RLE IMPRESSION: 1. No osseous destruction to suggest osteomyelitis. There is mild diffuse subcutaneous edema. No drainable fluid collection or soft tissue gas. 2. Surgical changes of subtalar arthrodesis. No definite hardware complication. There are cystic changes at the lateral talar dome which may be degenerative or osteochondral lesion. Mild degenerative joint disease of the midfoot. 3. Thickening of the peroneal tendons and Achilles tendon suspicious for tendinopathy. 4. Subcutaneous edema or soft tissue thickening with small radiopaque densities at the anterior tibiotalar joint along the extensor hallucis longus tendon. The tendon itself is difficult to visualize in this region but intact distally. Correlate for prior debridement or tendon repair in this region. Objective: Assessment: 1. Cellulitis of the right foot.Blister with possible underlying callus on the lateral aspect of the right foot, 2. History of right ankle surgery with hardware in place; Concern for deep tissue infection. 3. Chronic kidney disease. 4. Diabetes mellitus with neuropathy, uncontrolled. 5. Hypertension/hyperlipidemia. 6. Peripheral arterial disease. 7. Coronary artery disease, status post bypass. 8. Benign prostatic hypertrophy. Plan: Plan of Care Continue daptomycin and Zosyn. Wound care as directed by wound team Consult vascular surgery Elevate right lower extremity. Follow up blood cultures. Monitor labs. Discussed with at bedside Discussed with nursing staff DONALD RECIO MD Dec 13, 2020 08:28
[2020-12-13] MEDS: ASPIRIN CHEWABLE 81 MG TABLET. PO SCH (08:33)
[2020-12-13] MEDS: LACTOBACILLUS RHAMNOSUS GG 1 CAPSULE. PO SCH ×2 (08:34→20:52)
[2020-12-13] MEDS: MULTIVITAMIN with MINERAL TABLET. PO SCH (08:34)
[2020-12-13] MEDS: DOCUSATE SODIUM 100 MG CAPSULE. PO SCH ×2 (08:34→20:52)
[2020-12-13] MEDS: metFORMIN 500 MG TABLET PO SCH (08:34)
[2020-12-13] MEDS: hydroCHLOROthiazide 25 MG TABLET PO SCH (08:36)
[2020-12-13 09:13] LABS: BASO % 0 % (0-3); EOS # 0.1 x10^3/uL (0.0-0.7); EOS % 1 % (0-3); HEMOGLOBIN 13.4 g/dL (13.0-17.5); LYMPH # 1.9 x10^3/uL (1.0-4.8); LYMPH % 18 % (24-48); MEAN CORPUSCULAR HEMOGLOBIN 30 pg (25-35); MEAN CORPUSCULAR HGB CONC 34 g/dL (31-37); MEAN CORPUSCULAR VOLUME 88 fL (79-100); MONO # 1.2 x10^3/uL (0.0-1.1); MONO % 12 % (0-9); NEUT % 69 % (31-73); PLATELET COUNT 250 x10^3/uL (140-400); RED BLOOD COUNT 4.42 x10^6/uL (4.30-5.70); RED CELL DISTRIBUTION WIDTH 13.7 % (11.5-14.5); WHITE BLOOD COUNT 10.2 x10^3/uL (4.0-11.0)
[2020-12-13 09:33] LABS: C-REACTIVE PROTEIN 7.8 mg/L (0-3.3); CALCIUM 8.4 mg/dL (8.5-10.1); CREATININE 1.4 mg/dL (0.7-1.3); GFR 50.1; POTASSIUM 3.5 mmol/L (3.5-5.1)
[2020-12-13 11:00] VITALS: BP 171/57
[2020-12-13] MEDS: DAPTOmycin (GENERIC) IVPB 490 MG in IV NORMAL SALINE 50ML 50 ML IV SCH (11:56)
[2020-12-13] MEDS ORDERED: DEXTROSE 50% 25 GM / 50ML DISP.SYRIN. IV PRN ×2 (13:00→13:15)
--- NOTE | 2020-12-13 14:55 | PDOC ---
Provider Note Date of Service: DATE: 12/13/20 TIME: 14:44 Provider Note vss, no temp, labs same, glucose ok on current insulin- cults neg, R foot seems better- will open blister in am and culture fluid Justifications for Admission Other Justification DEVANG DAVIS MD Dec 13, 2020 14:55
[2020-12-13 15:00] VITALS: BP 174/69
[2020-12-13] MEDS ORDERED: metFORMIN 500 MG TABLET PO SCH (17:00)
[2020-12-13] MEDS: INSULIN LISPRO 300 UNITS/3 ML VIAL. SQ SCH (17:25)
[2020-12-13] MEDS: PANTOPRAZOLE 40 MG TABLET.DR. PO SCH (18:21)
[2020-12-13 19:15] VITALS: BP 154/52
[2020-12-13] MEDS: ATORVASTATIN CALCIUM 40 MG TABLET. PO SCH (20:51)
[2020-12-13] MEDS: TAMSULOSIN 0.4 MG CAP.ER.24H. PO SCH (20:52)
[2020-12-13] MEDS: INSULIN GLARGINE SYRINGE. SQ SCH (21:00)
[2020-12-13 23:26] VITALS: BP 162/66
[2020-12-14] MEDS: HYDROcodone/APAP 10/325 1 TAB TABLET PO PRN ×3 (03:04→20:52)
[2020-12-14 03:07] VITALS: BP 154/67
[2020-12-14] MEDS: PIPERACILLIN/TAZOBACTAM 3.375 GM in IV NORMAL SALINE 50ML 50 ML IV SCH ×4 (05:06→23:44)
[2020-12-14 08:00] VITALS: BP 161/69
[2020-12-14] MEDS: INSULIN LISPRO 300 UNITS/3 ML VIAL. SQ SCH ×3 (08:00→17:00)
--- NOTE | 2020-12-14 08:17 | PDOC ---
Provider Note Date of Service: DATE: 12/14/20 TIME: 07:56 Provider Note no temp, glucose control good, labs ok- R foot opened re 15 blade, thin dark blood/no pus, cultured and dressed- discussed need for vasc consult as he has bilat IC in both thighs, likely distal aortic disease- Justifications for Admission Other Justification DEVANG DAVIS MD Dec 14, 2020 08:17
[2020-12-14] MEDS: DOCUSATE SODIUM 100 MG CAPSULE. PO SCH ×2 (08:25→21:00)
[2020-12-14] MEDS: LACTOBACILLUS RHAMNOSUS GG 1 CAPSULE. PO SCH ×2 (08:25→20:44)
[2020-12-14] MEDS: MULTIVITAMIN with MINERAL TABLET. PO SCH (08:25)
[2020-12-14] MEDS: ASPIRIN CHEWABLE 81 MG TABLET. PO SCH (08:25)
[2020-12-14] MEDS: metFORMIN 500 MG TABLET PO SCH (08:25)
[2020-12-14] MEDS: PREGABALIN 50 MG CAPSULE PO SCH ×3 (08:26→20:45)
[2020-12-14] MEDS: hydroCHLOROthiazide 25 MG TABLET PO SCH (08:27)
[2020-12-14 11:00] VITALS: BP 111/66
--- NOTE | 2020-12-14 11:02 | PDOC ---
Infectious Disease Note Subjective: Subjective Patient feels better Underwent blister drainage by Dr. Cedeño earlier today Vital Signs: Vital Signs Vital Signs Date Time Temp Pulse Resp B/P (MAP) Pulse Ox O2 Delivery O2 Flow Rate FiO2 12/14/20 08:28 66 161/69 12/14/20 08:00 Room Air 12/14/20 08:00 98.1 18 98 98.1 Physical Exam: PHYSICAL EXAM GENERAL: Alert, oriented x 3 male lying in bed comfortably, in no acute distress. HEENT: Normocephalic, atraumatic. Anicteric. NECK: Supple, no JVD. LUNGS: Clear bilaterally. No wheezing. HEART: S1, S2. No gallops or murmurs. ABDOMEN: Soft, nontender, nondistended, no guarding. EXTREMITIES: Right foot swelling mainly over the dorsum slightly improved. There is a blister With possible underlying callus on the left fifth metatarsal area. No draining sinuses noted. Tenderness and warmth noted. No calf tenderness. NEUROLOGIC: Alert and oriented x 3, grossly nonfocal. PSYCHIATRIC: Calm and cooperative. Medications: Inpatient Meds: Medications reviewed. Labs: Lab Laboratory Tests Test 12/13/20 11:05 12/13/20 16:40 12/13/20 20:57 12/14/20 07:01 Glucose (Fingerstick) 207 mg/dL (70-99) 270 mg/dL (70-99) 145 mg/dL (70-99) 125 mg/dL (70-99) Micro CT RLE IMPRESSION: 1. No osseous destruction to suggest osteomyelitis. There is mild diffuse subcutaneous edema. No drainable fluid collection or soft tissue gas. 2. Surgical changes of subtalar arthrodesis. No definite hardware complication. There are cystic changes at the lateral talar dome which may be degenerative or osteochondral lesion. Mild degenerative joint disease of the midfoot. 3. Thickening of the peroneal tendons and Achilles tendon suspicious for tendinopathy. 4. Subcutaneous edema or soft tissue thickening with small radiopaque densities at the anterior tibiotalar joint along the extensor hallucis longus tendon. The tendon itself is difficult to visualize in this region but intact distally. Correlate for prior debridement or tendon repair in this region. Objective: Assessment: 1. Cellulitis of the right foot.Blister with possible underlying callus on the lateral aspect of the right foot, 2. History of right ankle surgery with hardware in place; Concern for deep tissue infection. 3. Chronic kidney disease. 4. Diabetes mellitus with neuropathy, uncontrolled. 5. Hypertension/hyperlipidemia. 6. Peripheral arterial disease. 7. Coronary artery disease, status post bypass. 8. Benign prostatic hypertrophy. Plan: Plan of Care Continue daptomycin and Zosyn. Wound care as directed by wound team Consult vascular surgery Follow-up blister cultures Elevate right lower extremity. Follow up blood cultures. Monitor labs. Discussed with nursing staff DONALD RECIO MD Dec 14, 2020 11:02
[2020-12-14] MEDS: DAPTOmycin (GENERIC) IVPB 490 MG in IV NORMAL SALINE 50ML 50 ML IV SCH (11:52)
[2020-12-14 14:56] VITALS: BP 158/59
[2020-12-14] MEDS: PANTOPRAZOLE 40 MG TABLET.DR. PO SCH (17:47)
[2020-12-14 19:15] VITALS: BP 170/66
[2020-12-14] MEDS: TAMSULOSIN 0.4 MG CAP.ER.24H. PO SCH (20:44)
[2020-12-14] MEDS: ATORVASTATIN CALCIUM 40 MG TABLET. PO SCH (20:45)
[2020-12-14] MEDS: INSULIN GLARGINE SYRINGE. SQ SCH (21:00)
[2020-12-14 23:14] VITALS: BP 158/62
[2020-12-15 03:15] VITALS: BP 146/58
[2020-12-15] MEDS: PIPERACILLIN/TAZOBACTAM 3.375 GM in IV NORMAL SALINE 50ML 50 ML IV SCH ×3 (05:16→17:49)
[2020-12-15] MEDS: HYDROcodone/APAP 10/325 1 TAB TABLET PO PRN ×3 (05:26→21:05)
[2020-12-15 07:00] VITALS: BP 143/62
[2020-12-15] MEDS: INSULIN LISPRO 300 UNITS/3 ML VIAL. SQ SCH ×3 (08:00→17:00)
--- NOTE | 2020-12-15 08:27 | PDOC ---
Provider Note Date of Service: DATE: 12/15/20 TIME: 08:17 Provider Note vss,no temp, wound cult pending- glucose good despite no lantus x 2 days- he admits to poor diet and coke at home- cont same meds, vascular consult pending Justifications for Admission Other Justification DEVANG DAVIS MD Dec 15, 2020 08:26
[2020-12-15] MEDS: MULTIVITAMIN with MINERAL TABLET. PO SCH (08:29)
[2020-12-15] MEDS: ASPIRIN CHEWABLE 81 MG TABLET. PO SCH (08:29)
[2020-12-15] MEDS: metFORMIN 500 MG TABLET PO SCH (08:29)
[2020-12-15] MEDS: LACTOBACILLUS RHAMNOSUS GG 1 CAPSULE. PO SCH ×2 (08:29→20:58)
[2020-12-15] MEDS: PREGABALIN 50 MG CAPSULE PO SCH ×3 (08:30→20:58)
[2020-12-15] MEDS: hydroCHLOROthiazide 25 MG TABLET PO SCH (08:30)
[2020-12-15] MEDS: DOCUSATE SODIUM 100 MG CAPSULE. PO SCH ×2 (08:30→20:58)
--- NOTE | 2020-12-15 09:24 | PDOC ---
Infectious Disease Note Subjective Subjective Patient feels better ROS ROS no n/v/d/sob Vital Sign Vital Signs Vital Signs Date Time Temp Pulse Resp B/P (MAP) Pulse Ox O2 Delivery O2 Flow Rate FiO2 12/15/20 08:36 53 143/62 12/15/20 07:00 97.7 18 94 Room Air 97.7 Physical Exam PHYSICAL EXAM GENERAL: Alert, oriented x 3 male lying in bed comfortably, in no acute distress. HEENT: Normocephalic, atraumatic. Anicteric. NECK: Supple, no JVD. LUNGS: Clear bilaterally. No wheezing. HEART: S1, S2. No gallops or murmurs. ABDOMEN: Soft, nontender, nondistended, no guarding. EXTREMITIES: Right foot swelling mainly over the dorsum slightly improved. There is a blister With possible underlying callus on the left fifth metatarsal area. No draining sinuses noted. Tenderness and warmth noted. No calf tenderness. NEUROLOGIC: Alert and oriented x 3, grossly nonfocal. PSYCHIATRIC: Calm and cooperative. Labs Lab Laboratory Tests Test 12/14/20 11:18 12/14/20 16:48 12/14/20 20:36 12/15/20 07:17 Glucose (Fingerstick) 165 mg/dL (70-99) 180 mg/dL (70-99) 167 mg/dL (70-99) 128 mg/dL (70-99) Micro Microbiology 12/12/20 Blood Culture - Preliminary, Resulted NO GROWTH AFTER 3 DAYS Objective Assessment 1. Cellulitis of the right foot.Blister with possible underlying callus on the lateral aspect of the right foot, 2. History of right ankle surgery with hardware in place; Concern for deep tissue infection. 3. Chronic kidney disease. 4. Diabetes mellitus with neuropathy, uncontrolled. 5. Hypertension/hyperlipidemia. 6. Peripheral arterial disease. 7. Coronary artery disease, status post bypass. 8. Benign prostatic hypertrophy. Plan Plan of Care Continue daptomycin and Zosyn.,,, soon to change to po d/w Wound care as directed by wound team d/w Vascular surgery Follow-up blister cultures Elevate right lower extremity. Follow up blood cultures. Monitor labs. Discussed with nursing staff IWONA RECIO MD Dec 15, 2020 09:24
--- NOTE | 2020-12-15 10:41 | PDOC2 ---
CONSULT Date of Service Date of Service DATE: 12/15/20 TIME: 10:24 Reason for Consult Reason for Consult: Peripheral arterial disease Referring Physician Referring Physician: Dr. Rhodes Identification/Chief Complaint Chief Complaint Right foot wound Source Source: Patient History of Present Illness Reason for Visit: Pleasant 70-year-old male with history of diabetes, complicated by chronic kidney disease stage IIIA, peripheral artery disease hypertension, hyperlipidemia, coronary disease status post CABG, GERD, BPH, opioid dependence who was admitted for a right foot wound/infection. We have been asked to evaluate the patient regarding this and his arterial duplex that shows significant peripheral arterial disease. His duplex shows chronic right SFA occlusion, monophasic flow throughout suggestive of inflow disease. He had ABIs in 2019 with results of 0.58 on the right and 0.66 on the left. Patient presented with a right foot wound on the lateral aspect where he thought he had a splinter which then turned into a blister and had some surrounding redness which brought him into the hospital. He denies any fevers or chills, abdominal pain, chest pain, shortness of breath. He did have associated drainage from the blister. The blister has been popped by Dr. Cedeño. He has been started on IV antibiotics. White blood cell count is 10.2, creatinine is 1.4. He is also had a carotid duplex in April 2020 that did not show significant stenosis. He has had a CT of his extremity that does not show any gas or fluid or osseous abnormalities near the foot wound. Does have history of right ankle surgery with hardware, as seen on plain x-ray. Denies history of stroke. He reports he can walk approximately 100 yards before he gets cramping in his calves sometimes thighs and he has to rest before proceeding. Past Medical History Cardiovascular: CAD, HTN, Hyperlipidemia Pulmonary: No pertinent hx CENTRAL NERVOUS SYSTEM: Other GI: GERD Heme/Onc: No pertinent hx Hepatobiliary: No pertinent hx Psych: No pertinent hx Musculoskeletal: Osteoarthritis Rheumatologic: No pertinent hx Infectious disease: No pertinent hx Renal/: No pertinent hx Endocrine: Diabetes Past Surgical History Past Surgical History: CABG, Other (Right ankle with hardware) Family History Family History Denies family history of stroke or heart disease Social History Social History Denies currently smoking or ever smoking ALCOHOL: occassional Drugs: None Lives: with Family Current Problem List Problem List Problems Medical Problems: (1) Type 2 diabetes mellitus Status: Acute Current Medications Current Medications Current Medications Vancomycin HCl 2 gm/Sodium Chloride 500 ml @ 250 mls/hr 1X ONCE IV Last administered on 12/11/20at 21:54; Start 12/11/20 at 21:15; Stop 12/11/20 at 23:14; Status DC Ondansetron HCl (Zofran) 4 mg PRN Q8HRS PRN IV NAUSEA/VOMITING Last administered on 12/12/20at 17:38; Start 12/11/20 at 22:45; Stop 12/12/20 at 22:44; Status DC Acetaminophen/ Hydrocodone Bitart (Lortab 5/325) 1 tab 1X ONCE PO Last administered on 12/12/20at 00:35; Start 12/12/20 at 00:30; Stop 12/12/20 at 00:32; Status DC Aspirin (Aspirin Chewable) 81 mg DAILY08 PO Last administered on 12/15/20at 08:29; Start 12/12/20 at 08:00 Docusate Sodium (Colace) 100 mg BID PO Last administered on 12/15/20at 08:30; Start 12/12/20 at 09:00 Insulin Glargine (Lantus Syringe) 90 unit HS SQ Last administered on 12/12/20at 21:22; Start 12/12/20 at 21:00; Stop 12/13/20 at 14:58; Status DC Metformin HCl (Glucophage) 500 mg BIDWMEALS PO Last administered on 12/13/20at 08:34; Start 12/12/20 at 08:00; Stop 12/13/20 at 14:43; Status DC Methocarbamol (Robaxin) 750 mg PRN TID PRN PO MUSCLE SPASMS; Start 12/12/20 at 06:30 Oxycodone HCl (OxyCONTIN) 10 mg BID PO ; Start 12/12/20 at 09:00; Stop 12/12/20 at 07:12; Status DC Oxycodone/ Acetaminophen (Percocet 5/325) 1 tab PRN Q6HRS PRN PO PAIN Last administered on 12/12/20at 06:44; Start 12/12/20 at 06:30; Stop 12/12/20 at 07:12; Status DC Tamsulosin HCl (Flomax) 0.4 mg HS PO Last administered on 12/14/20at 20:44; Start 12/12/20 at 21:00 Hydrochlorothiazide (Hydrodiuril) 25 mg DAILY PO ; Start 12/12/20 at 09:00; Stop 12/12/20 at 07:23; Status DC Multivitamins (Thera M Plus) 1 tab DAILY PO Last administered on 12/15/20 08:29; Start 12/12/20 at 09:00 Pregabalin (Lyrica) 100 mg TID PO Last administered on 12/13/20at 14:40; Start 12/12/20 at 09:00; Stop 12/13/20 at 14:43; Status DC Atorvastatin Calcium (Lipitor) 40 mg QHS PO Last administered on 12/14/20at 20:45; Start 12/12/20 at 21:00 Acetaminophen/ Hydrocodone Bitart (Lortab 10/325) 1 tab PRN Q6HRS PRN PO MODERATE TO SEVERE PAIN Last administered on 12/15/20 05:26; Start 12/12/20 at 07:15 Hydrochlorothiazide (Hydrodiuril) 12.5 mg DAILY PO Last administered on 12/15/20 08:30; Start 12/12/20 at 09:00 Amlodipine Besylate (Norvasc) 5 mg DAILY PO Last administered on 12/15/20 08:36; Start 12/12/20 at 09:00 Daptomycin 490 mg/ Sodium Chloride 50 ml @ 100 mls/hr Q24H IV Last administered on 12/14/20at 11:52; Start 12/12/20 at 12:00 Piperacillin Sod/ Tazobactam Sod 3.375 gm/Sodium Chloride 50 ml @ 100 mls/hr Q6HRS IV Last administered on 12/15/20 05:16; Start 12/12/20 at 12:00 Lactobacillus Rhamnosus (Culturelle) 1 cap BID PO Last administered on 12/15/20at 08:29; Start 12/12/20 at 21:00 Ondansetron HCl (Zofran) 4 mg PRN Q4HRS PRN IVP NAUSEA/VOMITING Last administered on 12/12/20at 23:18; Start 12/12/20 at 21:30 Dextrose (Dextrose 50%-Water Syringe) 12.5 gm PRN Q15MIN PRN IV SEE COMMENTS; Start 12/13/20 at 13:00; Stop 12/14/20 at 15:46; Status DC Insulin Human Lispro (HumaLOG) 0-7 UNITS TIDWMEALS SQ Last administered on 12/14/20at 17:00; Start 12/13/20 at 17:00 Dextrose (Dextrose 50%-Water Syringe) 12.5 gm PRN Q15MIN PRN IV SEE COMMENTS; Start 12/13/20 at 13:15 Metformin HCl (Glucophage) 1,000 mg BIDWMEALS PO ; Start 12/13/20 at 17:00; Stop 12/13/20 at 17:02; Status DC Pregabalin (Lyrica) 50 mg TID PO Last administered on 12/15/20at 08:30; Start 12/13/20 at 15:00 Pantoprazole Sodium (Protonix) 40 mg Q24H PO Last administered on 12/14/20at 17:47; Start 12/13/20 at 18:30 Insulin Glargine (Lantus Syringe) 95 unit HS SQ ; Start 12/13/20 at 21:00 Metformin HCl (Glucophage) 500 mg DAILYWBKFT PO Last administered on 12/15/20at 08:29; Start 12/14/20 at 08:00 Active Scripts Active Oxycontin (Oxycodone HCl) 10 Mg Tab.er.12h 1 Tab PO BID MDD 2 Tablet(s) 30 Days Dok (Docusate Sodium) 100 Mg Capsule 100 Mg PO BID Methocarbamol 750 Mg Tablet 750 Mg PO TID PRN Reported Lyrica (Pregabalin) 100 Mg Capsule 1 Cap PO TID Percocet 5-325 Mg Tablet (Oxycodone/Acetaminophen) 1 Each Tablet 1 Tab PO PRN Q6HRS PRN Metformin Hcl 500 Mg Tablet 500 Mg PO BIDWMEALS Crestor (Rosuvastatin Calcium) 10 Mg Tablet 1 Tab PO DAILY Hydrochlorothiazide Tablet (Hydrochlorothiazide) 50 Mg Tablet 25 Mg PO DAILY Flomax (Tamsulosin Hcl) 0.4 Mg Cap.er.24h 1 Cap PO HS Multi-Day Vitamins (Multivitamin) 1 Each Tablet 1 Tab PO DAILY Aspirin 81 Mg Tab.chew 1 Tab PO DAILY Lantus (Insulin Glargine,Hum.rec.anlog) 100 Unit/1 Ml Vial 90 Unit SQ HS Allergies Allergies: Coded Allergies: No Known Drug Allergies (Unverified , 04/09/20) ROS General: No: Chills, Other (Fever) Hematological and Lymphatic: No: Bleeding Problems, Blood Clots, Brusing Respiratory: No: Cough, Shortness of breath Cardiovascular: No Chest Pain Gastrointestinal: No Nausea, No Vomiting, No Abdominal Pain Musculoskeletal: Yes Pain In: (Claudication) Neurological: No Speech Problems Skin: Yes Rash, Yes Skin Lesion Changes Physical Exam General: Alert, Oriented X3, Cooperative, No acute distress HEENT: Atraumatic, EOMI Lungs: Clear to auscultation, Normal air movement (Room air) Heart: Regular rate, No murmurs, Other (No carotid bruits) Abdomen: Soft, No tenderness Extremities: No cyanosis, No edema, Other (Cannot appreciate pedal pulses, femoral pulses very faint. Bilateral feet are warm, with motor function and sensation intact. Hand-held Doppler with very blunted monophasic flow to the right AT and PT. Left leg with more brisk monophasic flow to DP and PT.) Skin: Other (No left foot wounds. Right foot has small lateral blister with minimal drainage, the overlying skin was removed and wound bed cleaned. The wound bed is clean without penetrating ulcer or further draiange, superficial. ) Neuro: Normal speech, Normal tone, Sensation intact Psych/Mental Status: Mental status NL, Mood NL Vitals VITALS Vital Signs Date Time Temp Pulse Resp B/P (MAP) Pulse Ox O2 Delivery O2 Flow Rate FiO2 12/15/20 08:36 53 143/62 12/15/20 07:00 97.7 18 94 Room Air 97.7 Labs Labs Laboratory Tests Test 12/13/20 11:05 12/13/20 16:40 12/13/20 20:57 12/14/20 07:01 Glucose (Fingerstick) 207 mg/dL (70-99) 270 mg/dL (70-99) 145 mg/dL (70-99) 125 mg/dL (70-99) Test 12/14/20 11:18 12/14/20 16:48 12/14/20 20:36 12/15/20 07:17 Glucose (Fingerstick) 165 mg/dL (70-99) 180 mg/dL (70-99) 167 mg/dL (70-99) 128 mg/dL (70-99) Laboratory Tests Test 12/14/20 11:18 12/14/20 16:48 12/14/20 20:36 12/15/20 07:17 Glucose (Fingerstick) 165 mg/dL (70-99) 180 mg/dL (70-99) 167 mg/dL (70-99) 128 mg/dL (70-99) Assessment/Plan Assessment/Plan PAD 70-year-old male with right foot wound, this was cleaned up at bedside today and is clean and superficial without signs of deeper infection. Recommend wound care, does not need surgical debridement. He does have significant peripheral arterial disease, especially on the right with chronic right SFA occlusion and possible inflow disease with monophasic flow throughout and very blunted monophasic AT and PT. He will need an aortogram with possible intervention. He does have chronic kidney disease, creatinine is 1.4 today. We will limit contrast exposure as much as possible and we will plan for preprocedure hydra tion. I discussed all this with the patient and his today at bedside, including risks/benefits of procedure, details of procedure, possible outcomes. They exhibited understanding and agreed to proceed as recommended. We will plan for angiogram with possible right leg intervention on Tuesday with Dr. Delgado. Will get morning labs. He had a carotid duplex in April 2020 without significant stenosis, would recommend repeating this again in April (1 year from previous). MEGAN YIN Dec 15, 2020 10:40
[2020-12-15 11:00] VITALS: BP 150/63
[2020-12-15] MEDS: DAPTOmycin (GENERIC) IVPB 490 MG in IV NORMAL SALINE 50ML 50 ML IV SCH (12:09)
[2020-12-15 15:00] VITALS: BP 145/64
[2020-12-15] MEDS: PANTOPRAZOLE 40 MG TABLET.DR. PO SCH (17:48)
[2020-12-15 19:00] VITALS: BP 153/60
[2020-12-15] MEDS: TAMSULOSIN 0.4 MG CAP.ER.24H. PO SCH (20:58)
[2020-12-15] MEDS: ATORVASTATIN CALCIUM 40 MG TABLET. PO SCH (20:58)
[2020-12-15] MEDS: INSULIN GLARGINE SYRINGE. SQ SCH (21:02)
[2020-12-15 23:00] VITALS: BP 164/73
[2020-12-16] MEDS: PIPERACILLIN/TAZOBACTAM 3.375 GM in IV NORMAL SALINE 50ML 50 ML IV SCH ×4 (00:31→18:00)
[2020-12-16] MEDS: IV NORMAL SALINE 1000ML BAG 1,000 ML IV SCH ×3 (02:45→14:41)
[2020-12-16 03:00] VITALS: BP 139/56
[2020-12-16] MEDS: HYDROcodone/APAP 10/325 1 TAB TABLET PO PRN ×4 (03:36→23:05)
[2020-12-16] MEDS: METHOCARBAMOL 750 MG TABLET PO PRN (05:41)
[2020-12-16 06:56] LABS: CALCIUM 8.4 mg/dL (8.5-10.1); CREATININE 1.5 mg/dL (0.7-1.3); GFR 46.3; POTASSIUM 3.4 mmol/L (3.5-5.1)
[2020-12-16 07:00] VITALS: BP 150/61
[2020-12-16] MEDS: INSULIN LISPRO 300 UNITS/3 ML VIAL. SQ SCH (08:00)
[2020-12-16] MEDS: PREGABALIN 50 MG CAPSULE PO SCH ×3 (08:42→21:27)
[2020-12-16] MEDS: ASPIRIN CHEWABLE 81 MG TABLET. PO SCH (08:42)
[2020-12-16] MEDS: metFORMIN 500 MG TABLET PO SCH (08:42)
[2020-12-16] MEDS: LACTOBACILLUS RHAMNOSUS GG 1 CAPSULE. PO SCH ×2 (08:42→21:26)
[2020-12-16] MEDS: MULTIVITAMIN with MINERAL TABLET. PO SCH (08:42)
[2020-12-16] MEDS: DOCUSATE SODIUM 100 MG CAPSULE. PO SCH ×2 (08:43→21:27)
--- NOTE | 2020-12-16 08:43 | PDOC ---
Infectious Disease Note Subjective Subjective Patient feels better ROS ROS no n/v/d/sob Vital Sign Vital Signs Vital Signs Date Time Temp Pulse Resp B/P (MAP) Pulse Ox O2 Delivery O2 Flow Rate FiO2 12/16/20 04:27 16 Room Air 12/16/20 03:00 97.7 52 139/56 (83) 97 97.7 Physical Exam PHYSICAL EXAM GENERAL: Alert, oriented x 3 male lying in bed comfortably, in no acute distress. HEENT: Normocephalic, atraumatic. Anicteric. NECK: Supple, no JVD. LUNGS: Clear bilaterally. No wheezing. HEART: S1, S2. No gallops or murmurs. ABDOMEN: Soft, nontender, nondistended, no guarding. EXTREMITIES: Right foot swelling mainly over the dorsum slightly improved. There is a blister With possible underlying callus on the left fifth metatarsal area. No draining sinuses noted. Tenderness and warmth noted. No calf tenderness. NEUROLOGIC: Alert and oriented x 3, grossly nonfocal. PSYCHIATRIC: Calm and cooperative. Labs Lab Laboratory Tests Test 12/15/20 10:51 12/15/20 16:59 12/15/20 20:43 12/16/20 06:20 Glucose (Fingerstick) 168 mg/dL (70-99) 146 mg/dL (70-99) 211 mg/dL (70-99) Sodium Level 142 mmol/L (136-145) Potassium Level 3.4 mmol/L (3.5-5.1) Chloride Level 106 mmol/L (98-107) Carbon Dioxide Level 24 mmol/L (21-32) Anion Gap 12 (6-14) Blood Urea Nitrogen 23 mg/dL (8-26) Creatinine 1.5 mg/dL (0.7-1.3) Estimated GFR (Cockcroft-Gault) 46.3 Glucose Level 87 mg/dL (70-99) Calcium Level 8.4 mg/dL (8.5-10.1) Test 12/16/20 07:48 Glucose (Fingerstick) 76 mg/dL (70-99) Micro Microbiology 12/12/20 Blood Culture - Preliminary, Resulted NO GROWTH AFTER 3 DAYS Objective Assessment 1. Cellulitis of the right foot.Blister with possible underlying callus on the lateral aspect of the right foot, 2. History of right ankle surgery with hardware in place; Concern for deep tissue infection. 3. Chronic kidney disease. 4. Diabetes mellitus with neuropathy, uncontrolled. 5. Hypertension/hyperlipidemia. 6. Peripheral arterial disease. 7. Coronary artery disease, status post bypass. 8. Benign prostatic hypertrophy. Plan Plan of Care dc daptomycin and Zosyn.,,, soon to change to po d/w Wound care as directed by wound team d/w Vascular surgery Follow-up blister cultures Elevate right lower extremity. Follow up blood cultures. Monitor labs. Discussed with nursing staff IWONA RECIO MD Dec 16, 2020 08:43
[2020-12-16] MEDS: hydroCHLOROthiazide 25 MG TABLET PO SCH (08:44)
--- NOTE | 2020-12-16 09:08 | PDOC ---
Provider Note Date of Service: DATE: 12/16/20 TIME: 09:08 Provider Note resumed higher dose lyrica he was on at home, reduced lantus re better diet here- vasc input noted, rest same Justifications for Admission Other Justification DEVANG DAVIS MD Dec 16, 2020 09:08
[2020-12-16 11:00] VITALS: BP 160/68
[2020-12-16] MEDS: DAPTOmycin (GENERIC) IVPB 490 MG in IV NORMAL SALINE 50ML 50 ML IV SCH (12:33)
[2020-12-16 15:00] VITALS: BP 161/57
[2020-12-16] MEDS: PANTOPRAZOLE 40 MG TABLET.DR. PO SCH (18:30)
[2020-12-16 19:15] VITALS: BP 170/59
[2020-12-16] MEDS ORDERED: INSULIN GLARGINE SYRINGE. SQ SCH (21:00)
[2020-12-16] MEDS: ATORVASTATIN CALCIUM 40 MG TABLET. PO SCH (21:26)
[2020-12-16] MEDS: TAMSULOSIN 0.4 MG CAP.ER.24H. PO SCH (21:27)
[2020-12-16 23:13] VITALS: BP 159/64
[2020-12-17] VITALS (14 sets, daily range): BP systolic 133–176; BP diastolic 46–67
[2020-12-17] MEDS: PIPERACILLIN/TAZOBACTAM 3.375 GM in IV NORMAL SALINE 50ML 50 ML IV SCH ×2 (00:29→06:11)
[2020-12-17] MEDS: IV NORMAL SALINE 1000ML BAG 1,000 ML IV SCH ×4 (02:00→20:04)
[2020-12-17] MEDS ORDERED: MORPHINE SULFATE 10 MG/ML VIAL. IV ONE (04:00)
[2020-12-17 05:30] LABS: CALCIUM 8.3 mg/dL (8.5-10.1); CREATININE 1.4 mg/dL (0.7-1.3); GFR 50.1; POTASSIUM 3.4 mmol/L (3.5-5.1)
[2020-12-17] MEDS ORDERED: IODIXANOL 320 MG/ML 100 ML VIAL. ONE (07:46)
[2020-12-17] MEDS ORDERED: LIDOCAINE 1% Multi-Dose 20 ML VIAL. ONE (07:47)
[2020-12-17] MEDS: ASPIRIN CHEWABLE 81 MG TABLET. PO SCH (08:00)
--- NOTE | 2020-12-17 08:30 | PDOC ---
Provider Note Date of Service: DATE: 12/17/20 TIME: 08:29 Provider Note no temp, cults neg- glucose lowish after lantus 50 so red to 40- for arteriogram today re PAD findings Justifications for Admission Other Justification DEVANG DAVIS MD Dec 17, 2020 08:30
[2020-12-17] MEDS ORDERED: MIDAZOLAM HCL/PF 5 MG/5 ML VIAL. ONE (08:33)
[2020-12-17] MEDS ORDERED: fentaNYL PF VIAL 250 MCG/5 ML VIAL ONE (08:34)
[2020-12-17] MEDS ORDERED: HEPARIN for IV BOLUS 10,000 UNIT/10 ML VIAL. ONE (08:34)
[2020-12-17] MEDS ORDERED: LABETALOL 20 MG/4 ML DISP.SYRIN. IVP ONE ×2 (08:58→09:30)
--- NOTE | 2020-12-17 09:21 | PDOC ---
Infectious Disease Note Subjective Subjective Patient feels better ROS ROS no n/v/d/ Vital Sign Vital Signs Vital Signs Date Time Temp Pulse Resp B/P (MAP) Pulse Ox O2 Delivery O2 Flow Rate FiO2 12/17/20 07:00 97.7 53 18 176/46 (89) 98 Room Air 97.7 Physical Exam PHYSICAL EXAM GENERAL: Alert, oriented x 3 male lying in bed comfortably, in no acute distress. HEENT: Normocephalic, atraumatic. Anicteric. NECK: Supple, no JVD. LUNGS: Clear bilaterally. No wheezing. HEART: S1, S2. No gallops or murmurs. ABDOMEN: Soft, nontender, nondistended, no guarding. EXTREMITIES: Right foot swelling mainly over the dorsum slightly improved. There is a blister With possible underlying callus on the left fifth metatarsal area. No draining sinuses noted. Tenderness and warmth noted. No calf tenderness. NEUROLOGIC: Alert and oriented x 3, grossly nonfocal. PSYCHIATRIC: Calm and cooperative. Labs Lab Laboratory Tests Test 12/17/20 03:35 12/17/20 07:22 Sodium Level 143 mmol/L (136-145) Potassium Level 3.4 mmol/L (3.5-5.1) Chloride Level 107 mmol/L (98-107) Carbon Dioxide Level 24 mmol/L (21-32) Anion Gap 12 (6-14) Blood Urea Nitrogen 21 mg/dL (8-26) Creatinine 1.4 mg/dL (0.7-1.3) Estimated GFR (Cockcroft-Gault) 50.1 Glucose Level 62 mg/dL (70-99) Calcium Level 8.3 mg/dL (8.5-10.1) Glucose (Fingerstick) 79 mg/dL (70-99) Micro Microbiology 12/12/20 Blood Culture - Preliminary, Resulted NO GROWTH AFTER 3 DAYS Objective Assessment 1. Cellulitis of the right foot.Blister with possible underlying callus on the lateral aspect of the right foot, 2. History of right ankle surgery with hardware in place; Concern for deep tissue infection. 3. Chronic kidney disease. 4. Diabetes mellitus with neuropathy, uncontrolled. 5. Hypertension/hyperlipidemia. 6. Peripheral arterial disease. 7. Coronary artery disease, status post bypass. 8. Benign prostatic hypertrophy. Plan Plan of Care dc daptomycin and Zosyn.,,, change to po augmentin d/w Wound care as directed by wound team d/w Vascular surgery culture neg Elevate right lower extremity. Follow up blood cultures. Monitor labs. Discussed with nursing staff IWONA RECIO MD Dec 17, 2020 09:21
[2020-12-17] MEDS ORDERED: LIDOCAINE 1% Multi-Dose 20 ML VIAL. INJ ONE (09:30)
[2020-12-17] MEDS ORDERED: MIDAZOLAM HCL/PF 5 MG/5 ML VIAL. IV ONE (09:30)
[2020-12-17] MEDS ORDERED: fentaNYL PF VIAL 250 MCG/5 ML VIAL IV ONE (09:30)
[2020-12-17] MEDS ORDERED: CLOPIDOGREL BISULFATE 75 MG TABLET ONE (09:33)
[2020-12-17] MEDS ORDERED: CLOPIDOGREL BISULFATE 75 MG TABLET PO ONE ×2 (09:45→10:15)
[2020-12-17] MEDS ORDERED: hydrALAZINE 20 MG/ML VIAL. ONE (10:04)
--- NOTE | 2020-12-17 10:35 | PDOC ---
BRIEF OPERATIVE NOTE Date: Dec 17, 2020 Pre-Op Diagnosis Atherosclerosis right leg ulceration PAD HTN (uncontrolled) HLD Post-Op Diagnosis Same Procedure Performed Bilateral kissing common iliac stents 7x39 Right EIA CARL 7x40 Aortogram with right leg runnoff Bilateral Starclose Surgeon Fabiano Tucker DO, FACS Anesthesia Type: Conscious Sedation Blood Loss none Findings Chronic [employer] right SFA. Will need Fem-pop bypass Complications none FABIANO TUCKER DO Dec 17, 2020 10:34
[2020-12-17] MEDS: hydroCHLOROthiazide 25 MG TABLET PO SCH (11:11)
[2020-12-17] MEDS: ONDANSETRON PF 4 MG/2 ML VIAL. IVP PRN (11:11)
[2020-12-17] MEDS: PREGABALIN 50 MG CAPSULE PO SCH ×3 (11:12→20:49)
--- NOTE | 2020-12-17 11:26 | OP ---
DATE OF SURGERY: 12/17/2020 PREOPERATIVE DIAGNOSES: 1. Atherosclerosis with bilateral lower extremity lifestyle-limiting claudication. 2. Hypertension. 3. Hyperlipidemia. 4. Diabetes mellitus. POSTOPERATIVE DIAGNOSES: 1. Atherosclerosis with bilateral lower extremity lifestyle-limiting claudication. 2. Hypertension. 3. Hyperlipidemia. 4. Diabetes mellitus. PROCEDURES PERFORMED: 1. Percutaneous endovascular stent placement into the right common iliac artery using a 7 x 39 balloon expandable stent in a kissing fashion (CPT code 40435). 2. Percutaneous endovascular stent placement into the left common iliac artery using 7 x 39 balloon expandable stent in a kissing fashion (CPT code 67613). 3. Percutaneous endovascular balloon angioplasty of the right external iliac artery using a 7 x 40 Rocket.Latronic IN.PACT Admiral drug-eluting balloon (CPT code 06639). 4. Abdominal aortogram (CPT code 80365-11). 5. Selective right lower extremity angiogram (CPT code 72786-10). 6. Moderate sedation for the initial 15 minutes (CPT code 50005). 7. Moderate sedation for the subsequent 15 minutes for a total procedure time of 69 minutes (CPT code 78214). 8. Ultrasound-guided access of bilateral common femoral arteries (CPT code 16590-45-69). 9. Bilateral common femoral artery StarClose. ANESTHESIA: Local with moderate sedation for a total of 3 of Versed and 150 mcg of fentanyl and total procedure moderate sedation time of 69 minutes. ESTIMATED BLOOD LOSS: Minimal. SPECIMENS: None. COMPLICATIONS: None. PREOPERATIVE INDICATIONS: The patient is a 70-year-old male who I was asked to perform revascularization of his lower extremities due to right lower extremity tissue loss. The patient was consented for the procedure and understood all risks, benefits and alternatives of the procedure prior to proceeding. DESCRIPTION OF PROCEDURE: The patient was brought to the catheterization suite and placed in supine position. After establishing appropriate moderate sedation, bilateral femoral access sites were prepped and draped in sterile fashion. Next, a timeout procedure was performed. Following this, using a sterile ultrasound probe, the left common femoral artery was visualized and then 1% lidocaine was infiltrated underneath the skin. Next, the left common femoral artery was accessed using micropuncture needle under direct ultrasound guidance. Following this, a microwire was inserted under fluoroscopy guidance. Next, a small skin incision was made and the needle was removed and a microsheath was inserted. Next, a 0.035 Bentson wire was inserted into abdominal aorta under fluoro guidance. Following this, a microsheath was exchanged for a 5 Greek short sheath, which was appropriately flushed. Next, UF flushed catheter was inserted into the abdominal aorta and then an abdominal aortogram was performed. Abdominal aortogram findings are as follows: The right and left renal arteries appear widely patent. The proximal, mid and distal abdominal aorta appear widely patent. The patient has high-grade stenosis of the right and left common iliac arteries at their origin, which I would estimate greater than 90%. There is some stenosis in the right external iliac artery, which I had estimated approximately 60-70%. There is calcified disease in the left external iliac artery, but the lumen appears patent and preserved. The hypogastric arteries appear patent bilaterally. The right and left common femoral arteries are also patent. At this point in time, using ultrasound guidance, the right common femoral artery was directly visualized and then 1% lidocaine was infiltrated underneath the skin. Next, a micropuncture needle was used to access the right common femoral artery under direct ultrasound guidance. This was followed by microwire under fluoroscopy guidance. Next, a small skin incision was made. Needle was removed and a microsheath was inserted. Following this, a 0.035 Bentson wire was inserted into abdominal aorta and then a microsheath was exchanged for a 6-Greek 25 cm sheath, which was positioned into the abdominal aorta. Prior to doing that, I did perform a selective right lower extremity angiogram. The right lower extremity angiogram findings are as follows: The right common femoral artery appears widely patent. The right profunda femoral artery is widely patent. Superficial femoral artery is heavily diseased at its origin, but there is a small remnant of the vessel and then there was a chronic total occlusion of the superficial femoral artery at the adductor canal with reconstitution of the above knee popliteal artery. I did not visualize the tibial vessels very well below the knee and I did want to limit our contrast dye given our intervention. At this point in time, our 5-Greek sheath on the left was exchanged for a 6-Greek 25 cm sheath, which was matched to the other sheath and both sheaths were appropriately flushed. Following this, the patient was heparinized per weight-based protocol. Next, two 7 x 39 stents were positioned into the common iliac arteries in a kissing fashion and then these were inflated to nominal pressure in a kissing fashion. Completion angiogram revealed markedly improved flow through the common iliac arteries. Next, a ESTONIAN projected angiogram was performed which opened up the right external iliac lesion and then this lesion was ballooned using a 6 x 40 standard angioplasty balloon followed by a 7 x 40 drug-eluting balloon for a total of 3 minutes. Completion angiogram revealed brisk flow through the iliac arteries bilaterally at this point. The vessels were determined safe for closure. Next, a StarClose device was inserted on the right followed by the left. The patient had excellent hemostasis at the access sites and was transferred to the post-catheterization area in stable condition. ANTONIO KEITA: Callie TID: [id number]
[2020-12-17] MEDS: LACTOBACILLUS RHAMNOSUS GG 1 CAPSULE. PO SCH ×2 (12:06→20:49)
[2020-12-17] MEDS: AMOXICILLIN/K CLAV 875/125MG TABLET. PO SCH ×2 (12:07→20:48)
[2020-12-17] MEDS: MULTIVITAMIN with MINERAL TABLET. PO SCH (12:07)
[2020-12-17] MEDS: metFORMIN 500 MG TABLET PO SCH (12:07)
[2020-12-17] MEDS: DOCUSATE SODIUM 100 MG CAPSULE. PO SCH ×2 (12:07→20:49)
--- NOTE | 2020-12-17 13:18 | RAD ---
EXAM: Bilateral lower extremity venous mapping. HISTORY: Preoperative evaluation. Right leg bypass. TECHNIQUE: Sonographic imaging of the lower extremity veins was performed. COMPARISON: None. FINDINGS: The right greater saphenous vein measures 2.4 mm within the proximal thigh, 1.2 mL within t he upper mid thigh, 1.4 mm within the mid thigh, 1.4 mm at the level of the knee, 1.5 mm within the p roximal calf, 2.3 mm within the mid calf and 2.5 mm at the ankle. The right lesser saphenous vein ирина sures 1.3 mm within the proximal calf, 0.9 mm within the mid calf and 1.7 mm within the distal calf. There has been left greater saphenous vein stripping. The left lesser saphenous vein is very small in caliber and difficult to measure within its mid and distal aspects. The lesser saphenous vein measur es 1.6 mm within the proximal calf. IMPRESSION: 1. Findings consistent with prior left greater saphenous vein stripping. 2. Right greater saphenous vein and lesser saphenous vein caliber measurements, described above. 3. Small caliber left lesser saphenous vein, only measurable within its proximal aspect as described above. Electronically signed by: Stephanie Ruiz MD (12/17/2020 1:16 PM) [id number]
[2020-12-17] MEDS ORDERED: POTASSIUM CHLORIDE 20 MEQ TABLET.ER. PO ONE (15:30)
--- NOTE | 2020-12-17 15:52 | PDOC2 ---
YARON BARLOW REPAIR [employer] 12/17/20 1552: CARDIAC CONSULT DATE OF CONSULT Date of Consult DATE: 12/17/20 TIME: 15:29 REASON FOR CONSULT Reason for Consult: preop clearance REFERRING PHYSICIAN Referring Physician: Gomez SOURCE Source: Chart review, Patient HISTORY OF PRESENT ILLNESS HISTORY OF PRESENT ILLNESS This is a 70 yo male admitted for complains of right foot pain and poor healing wound. Further testing revealed severe PAD. He has been having LE pain. Consult is for preop eval but pt ended up having the percutaneous revascularization of bilateral LE before being seen. He has tolerated the procedure well and denies any chest pain or SOA. PAST MEDICAL HISTORY Past Medical History Cardiovascular: CAD, HTN, Hyperlipidemia, PAD Pulmonary: No pertinent hx CENTRAL NERVOUS SYSTEM: Other (No pertinent history) GI: GERD Heme/Onc: No pertinent hx Hepatobiliary: No pertinent hx Psych: No pertinent hx Musculoskeletal: Osteoarthritis Rheumatologic: No pertinent hx Infectious disease: No pertinent hx ENT: No pertinent hx Renal/: No pertinent hx Endocrine: Diabetes (2) Dermatology: No pertinent hx PAST SURGICAL HISTORY Past Surgical History CABG (x3 01/2012), Other (right ankle surgery; cochlear implant to left ear) FAMILY HISTORY Family History noncontributory SOCIAL HISTORY Smoke: No ALCOHOL: none Drugs: None Lives: with Family CURRENT MEDICATIONS CURRENT MEDICATIONS Current Medications Medications (Trade) Dose Ordered Sig/Joana Route PRN Reason Start Time Stop Time Status Last Admin Dose Admin Insulin Glargine (Lantus Syringe) 50 unit HS SQ 12/16/20 21:00 12/17/20 08:29 DC 12/16/20 21:32 Morphine Sulfate (Morphine Sulfate) 6 mg 1X ONCE IV 12/17/20 04:00 12/17/20 04:01 DC 12/17/20 04:04 Amoxicillin/ Clavulanate Potassium (Augmentin 875/ 125mg) 1 tab BID PO 12/17/20 10:00 12/17/20 12:07 Heparin Sodium/ Sodium Chloride (HEPARIN for ARTERIAL LINE FLUSH) 1,000 unit 1X ONCE IART 12/17/20 09:30 12/17/20 09:34 DC 12/17/20 09:30 Midazolam HCl (Versed) 5 mg 1X ONCE IV 12/17/20 09:30 12/17/20 09:34 DC 12/17/20 09:30 Fentanyl Citrate (Fentanyl 5ml Vial) 250 mcg 1X ONCE IV 12/17/20 09:30 12/17/20 09:34 DC 12/17/20 09:30 Lidocaine HCl (Lidocaine 1% 20ml Vial) 20 ml 1X ONCE INJ 12/17/20 09:30 12/17/20 09:34 DC 12/17/20 09:30 Labetalol HCl (Normodyne Iv Push) 20 mg 1X ONCE IVP 12/17/20 09:30 12/17/20 09:34 DC 12/17/20 09:30 Clopidogrel Bisulfate (Plavix) 300 mg 1X ONCE PO 12/17/20 09:45 12/17/20 09:46 DC 12/17/20 09:45 Heparin Sodium/ Sodium Chloride (HEPARIN for ARTERIAL LINE FLUSH) 1,000 unit 1X ONCE IART 12/17/20 09:45 12/17/20 09:46 DC 12/17/20 09:45 Clopidogrel Bisulfate (Plavix) 75 mg 1X ONCE PO 12/17/20 10:15 12/17/20 10:25 DC 12/17/20 12:07 ALLERGIES ALLERGIES: Coded Allergies: No Known Drug Allergies (Unverified , 04/09/20) ROS Review of System 14 point ROS evaluated with pertinent positives noted per HPI PHYSICAL EXAM General: Alert, Oriented X3, Cooperative, No acute distress HEENT: Atraumatic, Mucous membr. moist/pink Lungs: Clear to auscultation, Normal air movement Heart: Regular rate (SR), Normal S1, Normal S2, No murmurs Abdomen: Soft, No tenderness Extremities: No cyanosis, No edema Skin: No breakdown, No significant lesion Neuro: Normal speech, Sensation intact Psych/Mental Status: Mental status NL, Mood NL MUSCULOSKELETAL: Osteoarthritic changes both hands VITALS/I&O VITALS/I&O: Vital Signs Date Time Temp Pulse Resp B/P (MAP) Pulse Ox O2 Delivery O2 Flow Rate FiO2 12/17/20 11:11 62 154/55 12/17/20 10:17 16 99 Room Air 12/17/20 09:30 2.0 12/17/20 07:00 97.7 97.7 I & O 12/16/20 12/16/20 12/17/20 15:00 23:00 07:00 Intake Total 50 ml 120 ml 2640 ml Balance 50 ml 120 ml 2640 ml LABS Lab: Laboratory Tests Test 12/17/20 03:35 12/17/20 07:22 Sodium Level 143 mmol/L (136-145) Potassium Level 3.4 mmol/L (3.5-5.1) L Chloride Level 107 mmol/L (98-107) Carbon Dioxide Level 24 mmol/L (21-32) Anion Gap 12 (6-14) Blood Urea Nitrogen 21 mg/dL (8-26) Creatinine 1.4 mg/dL (0.7-1.3) H Estimated GFR (Cockcroft-Gault) 50.1 Glucose Level 62 mg/dL (70-99) L Calcium Level 8.3 mg/dL (8.5-10.1) L Glucose (Fingerstick) 79 mg/dL (70-99) Laboratory Tests 12/17/20 03:35 STRESS TEST STRESS TEST <Conclusion> The left ventricle is normal size. The left ventricular systolic function is normal and the ejection fraction is within normal range. The Ejection Fraction is 50-55%. There is mild concentric left ventricular hypertrophy. There is no significant aortic valvular stenosis. Doppler and Color Flow revealed no significant aortic regurgitation. Doppler and Color-flow revealed trace mitral regurgitation. Doppler and Color Flow revealed trace tricuspid regurgitation with an estimated PAP of 40 mmHg. DATE: 02/08/19 1208 HEART CATH HEART CATH Conclusion 1. Normal biventricular filling pressures. 2. No pulmonary HTN 3. Normal cardiac output. 4. Severe two vessel coronary artery disease involving the LAD/Diagonal. 5. Patent WINKLER, SVG to D1/LPL sequential graft. Recommendations No obvious cardiac source of dyspnea noted. Plan for echocardiogram to rule out mitral or tricuspic insufficiency. Plan for 6 minute cole walk to rule out pulmonary source. DATE: 11/18/16 1120 ASSESSMENT/PLAN ASSESSMENT/PLAN 1. Severe LE PAD with claudications: S/P bilateral [employer] with stent placement to LCIA/RCIA and [employer] to REIA per vascular. tolerated procedure well 2. CAD: past CABG. clinically stable 3. HTN: controlled 4. HLP 5. DM2: per PCP 6. CKD3 Recommendations 1. Continue secondary prevention measures. repalce K 2. Supportive care VIC WORKMAN MD 12/17/20 1861: CARDIAC CONSULT ASSESSMENT/PLAN ASSESSMENT/PLAN The patient was seen and interviewed as well as examined at the bedside. The chart was reviewed. The case was discussed. Agree with the plan of care. No further CV testing needed prior to planned RLE bypass. Supportive care. Discussed with Dr. Delgado. YARON BARLOW APRN Dec 17, 2020 15:52 VIC WORKMAN MD Dec 17, 2020 18:31
[2020-12-17] MEDS: PANTOPRAZOLE 40 MG TABLET.DR. PO SCH (18:04)
[2020-12-17] MEDS: TAMSULOSIN 0.4 MG CAP.ER.24H. PO SCH (20:49)
[2020-12-17] MEDS: ATORVASTATIN CALCIUM 40 MG TABLET. PO SCH (20:49)
[2020-12-17] MEDS ORDERED: INSULIN GLARGINE SYRINGE. SQ SCH (21:00)
[2020-12-17] MEDS: HYDROcodone/APAP 10/325 1 TAB TABLET PO PRN (22:16)
[2020-12-18 03:00] VITALS: BP 139/80
[2020-12-18] MEDS: IV NORMAL SALINE 1000ML BAG 1,000 ML IV SCH ×2 (03:00→05:09)
[2020-12-18] MEDS: METHOCARBAMOL 750 MG TABLET PO PRN (04:12)
[2020-12-18] MEDS: HYDROcodone/APAP 10/325 1 TAB TABLET PO PRN (04:12)
[2020-12-18 07:00] VITALS: BP 166/112
[2020-12-18] MEDS: metFORMIN 500 MG TABLET PO SCH (08:00)
[2020-12-18] MEDS: hydroCHLOROthiazide 25 MG TABLET PO SCH (08:16)
[2020-12-18] MEDS: LACTOBACILLUS RHAMNOSUS GG 1 CAPSULE. PO SCH (08:17)
[2020-12-18] MEDS: DOCUSATE SODIUM 100 MG CAPSULE. PO SCH (08:17)
[2020-12-18] MEDS: MULTIVITAMIN with MINERAL TABLET. PO SCH (08:17)
[2020-12-18] MEDS: ASPIRIN CHEWABLE 81 MG TABLET. PO SCH (08:17)
[2020-12-18] MEDS: PREGABALIN 50 MG CAPSULE PO SCH (08:17)
[2020-12-18] MEDS: AMOXICILLIN/K CLAV 875/125MG TABLET. PO SCH (08:17)
--- NOTE | 2020-12-18 08:25 | PDOC ---
Infectious Disease Note Subjective Subjective Patient feels better ready to go home ROS ROS no n/v/d/ Vital Sign Vital Signs Vital Signs Date Time Temp Pulse Resp B/P (MAP) Pulse Ox O2 Delivery O2 Flow Rate FiO2 12/18/20 08:18 65 166/112 12/18/20 07:20 Room Air 12/18/20 03:00 98.3 18 97 98.3 12/17/20 09:30 2.0 Physical Exam PHYSICAL EXAM GENERAL: Alert, oriented x 3 male lying in bed comfortably, in no acute distress. HEENT: Normocephalic, atraumatic. Anicteric. NECK: Supple, no JVD. LUNGS: Clear bilaterally. No wheezing. HEART: S1, S2. No gallops or murmurs. ABDOMEN: Soft, nontender, nondistended, no guarding. EXTREMITIES: Right foot swelling mainly over the dorsum slightly improved. There is a blister With possible underlying callus on the left fifth metatarsal area. No draining sinuses noted. Tenderness and warmth noted. No calf tenderness. NEUROLOGIC: Alert and oriented x 3, grossly nonfocal. PSYCHIATRIC: Calm and cooperative. Labs Micro Microbiology 12/12/20 Blood Culture - Preliminary, Resulted NO GROWTH AFTER 3 DAYS Objective Assessment 1. Cellulitis of the right foot.Blister with possible underlying callus on the lateral aspect of the right foot, 2. History of right ankle surgery with hardware in place; Concern for deep tissue infection. 3. Chronic kidney disease. 4. Diabetes mellitus with neuropathy, uncontrolled. 5. Hypertension/hyperlipidemia. 6. Peripheral arterial disease. 7. Coronary artery disease, status post bypass. 8. Benign prostatic hypertrophy. Plan Plan of Care po augmentin d/w s/p angioplasty culture neg ok to d/c d/w Dr Cedeño Discussed with nursing staff IWONA RECIO MD Dec 18, 2020 08:25
[2020-12-18] MEDS ORDERED: PREGABALIN 50 MG CAPSULE PO STA (08:42)
[2020-12-18 11:00] VITALS: BP 171/63
--- NOTE | 2020-12-18 12:34 | CARD ---
MR#: [id number] Date of Study: 12/18/2020 Ordering Physician: VIC WORKMAN, Referring Physician: VIC WORKMAN, Tech: Alexus Harmon, [facility] APPROVED REPORT EXAM: Two-dimensional and M-mode echocardiogram with Doppler and color Doppler. Other Information Quality : AverageHR: 63bpm INDICATION Pre-Op RISK FACTORS Hypertension Hyperlipidemia Diabetes 2D DIMENSIONS Left Atrium(2D)3.5 (1.6-4.0cm)IVSd1.4 (0.7-1.1cm) Aortic Root(2D)3.5 (2.0-3.7cm)LVDd5.5 (3.9-5.9cm) LVOT Diameter2.0 (1.8-2.4cm)PWd1.1 (0.7-1.1cm) LVDs3.5 (2.5-4.0cm)FS (%) 36.5 % SV96.5 mlLVEF(%)65.7 (>50%) Aortic Valve AoV Peak Devaughn.174.9cm/sAoV VTI40.8cm AO Peak GR.12.2mmHgLVOT Peak Devaughn.154.0cm/s LVOT VTI 38.87cmAO Mean GR.6mmHg YVONNE (VMAX)2.53ny4WIH (VTI)3.02cm2 Mitral Valve MV E Eqvevcqc511.9cm/sMV DECEL [id number] MV A Vvhnyemh29.8cm/sMV QAR70gt E/A Ratio2.5MVA (PHT)3.66cm2 TDI E/Lateral E'14.6E/Medial E'21.3 Pulmonary Valve PV Peak Jeoazckw281.5cm/sPV Peak Grad.5mmHg Tricuspid Valve TR P. Uwefswyt484lt/sRAP [id number] TR Peak Gr.26stPfYGUL40cwKy LEFT VENTRICLE The left ventricle is normal size. There is mild to moderate concentric left ventricular hypertrophy. The left ventricular systolic function is normal. The Ejection Fraction is 55-60%. There is normal L V segmental wall motion. Transmitral Doppler flow pattern is Grade II-pseudonormal filling dynamics. RIGHT VENTRICLE The right ventricle is normal size. There is normal right ventricular wall thickness. The right ventr icular systolic function is normal. ATRIA The left atrium size is normal. The right atrium size is normal. The interatrial septum is intact wit h no evidence for an atrial septal defect or patent foramen ovale as noted on 2-D or Doppler imaging. AORTIC VALVE The aortic valve is normal in structure and function. Doppler and Color Flow revealed no significant aortic regurgitation. There is no significant aortic valvular stenosis. Calculated aortic valve area is 2.49 cm2 with maximum pressure gradient of 17 mmHg and mean pressure gradient of 8 mmHg. MITRAL VALVE The mitral valve is normal in structure and function. There is no evidence of mitral valve prolapse. There is no mitral valve stenosis. Doppler and Color Flow revealed no mitral valve regurgitation note d. TRICUSPID VALVE The tricuspid valve is normal in structure and function. Doppler and Color Flow revealed trace tricus pid regurgitation with an estimated PAP of 47 mmHg. There is no tricuspid valve stenosis. PULMONIC VALVE The pulmonic valve is not well visualized. Doppler and Color Flow revealed trace pulmonic valvular re gurgitation. GREAT VESSELS The aortic root is normal in size. The ascending aorta is normal in size. The IVC is normal in size a nd collapses >50% with inspiration. PERICARDIAL EFFUSION There is no evidence of significant pericardial effusion. Critical Notification Critical Value: No <Conclusion> The left ventricular systolic function is normal. The Ejection Fraction is 55-60%. There is normal LV segmental wall motion. Trace tricuspid regurgitation with an estimated PAP of 47 mmHg. There is no evidence of significant pericardial effusion. Signed by : Danilo De Souza, Electronically Approved : 12/18/2020 12:34:29
[2020-12-18] MEDS ORDERED: CLOP75TA PO (14:10)
--- NOTE | 2020-12-18 14:13 | PDOC ---
PROGRESS NOTES Date of Service DATE: 12/18/20 TIME: 14:04 Subjective Subjective Patient seen and examined in room. Family at bedside. Patient is anxious to discharge at home. He would like to go home over the weekend and then follow-up next week with plans for surgery. Patient with improvement in right leg pain. Objective Objective Vital Signs Date Time Temp Pulse Resp B/P (MAP) Pulse Ox O2 Delivery O2 Flow Rate FiO2 12/18/20 11:00 97.5 70 17 171/63 (99) 96 Room Air 97.5 12/17/20 09:30 2.0 Intake and Output 12/18/20 07:00 Intake Total 800 ml Output Total 850 ml Balance -50 ml IV Total 800 ml Output Urine Total 850 ml # Voids 3 # Bowel Movements 2 Physical Exam Physical Exam Awake and alert Heart rate regular Bilateral femoral access site dressings dry and intact. No hematoma or swelling. Bilateral feet warm, capillary refill less than 3 seconds. Right lateral foot wound is clean, no drainage, minimal erythema. Doppler signal present DP and PT monophasic. Motor and sensation intact Assessment Assessment Problems Medical Problems: (1) Type 2 diabetes mellitus Status: Acute Plan Plan of Care 72-year-old male with peripheral arterial disease status post angioplasty and bilateral iliac stent placement. Patient has chronic total occlusion of right SFA we recommend right femoral to popliteal bypass. Patient is anxious and would like to discharge home and return for surgery. We have scheduled the patient to see us in our office with repeat vein mapping next week. We will schedule surgery in the near future. Recommend continue local wound care and antibiotics per infectious disease. Continue daily aspirin, plavix and daily statin. Comment Review of Relevant I have reviewed the following items avinash (where applicable) has been applied. Labs Laboratory Tests Test 12/17/20 03:35 12/17/20 07:22 12/18/20 11:46 Sodium Level 143 mmol/L (136-145) Potassium Level 3.4 mmol/L (3.5-5.1) Chloride Level 107 mmol/L (98-107) Carbon Dioxide Level 24 mmol/L (21-32) Anion Gap 12 (6-14) Blood Urea Nitrogen 21 mg/dL (8-26) Creatinine 1.4 mg/dL (0.7-1.3) Estimated GFR (Cockcroft-Gault) 50.1 Glucose Level 62 mg/dL (70-99) Calcium Level 8.3 mg/dL (8.5-10.1) Glucose (Fingerstick) 79 mg/dL (70-99) 220 mg/dL (70-99) Laboratory Tests Test 12/18/20 11:46 Glucose (Fingerstick) 220 mg/dL (70-99) Microbiology 12/14/20 Gram Stain - Final, Resulted 12/14/20 Aerobic and Anaerobic Culture - Preliminary, Resulted 12/12/20 Blood Culture - Final, Complete NO GROWTH AFTER 5 DAYS Medications Current Medications Vancomycin HCl 2 gm/Sodium Chloride 500 ml @ 250 mls/hr 1X ONCE IV Last administered on 12/11/20at 21:54; Start 12/11/20 at 21:15; Stop 12/11/20 at 23:14; Status DC Ondansetron HCl (Zofran) 4 mg PRN Q8HRS PRN IV NAUSEA/VOMITING Last administered on 12/12/20at 17:38; Start 12/11/20 at 22:45; Stop 12/12/20 at 22:44; Status DC Acetaminophen/ Hydrocodone Bitart (Lortab 5/325) 1 tab 1X ONCE PO Last administered on 12/12/20at 00:35; Start 12/12/20 at 00:30; Stop 12/12/20 at 00:32; Status DC Aspirin (Aspirin Chewable) 81 mg DAILY08 PO Last administered on 12/18/20at 08:17; Start 12/12/20 at 08:00 Docusate Sodium (Colace) 100 mg BID PO Last administered on 12/18/20at 08:17; Start 12/12/20 at 09:00 Insulin Glargine (Lantus Syringe) 90 unit HS SQ Last administered on 12/12/20at 21:22; Start 12/12/20 at 21:00; Stop 12/13/20 at 14:58; Status DC Metformin HCl (Glucophage) 500 mg BIDWMEALS PO Last administered on 12/13/20at 08:34; Start 12/12/20 at 08:00; Stop 12/13/20 at 14:43; Status DC Methocarbamol (Robaxin) 750 mg PRN TID PRN PO MUSCLE SPASMS Last administered on 12/18/20at 04:12; Start 12/12/20 at 06:30 Oxycodone HCl (OxyCONTIN) 10 mg BID PO ; Start 12/12/20 at 09:00; Stop 12/12/20 at 07:12; Status DC Oxycodone/ Acetaminophen (Percocet 5/325) 1 tab PRN Q6HRS PRN PO PAIN Last administered on 12/12/20at 06:44; Start 12/12/20 at 06:30; Stop 12/12/20 at 07:12; Status DC Tamsulosin HCl (Flomax) 0.4 mg HS PO Last administered on 12/17/20at 20:49; Start 12/12/20 at 21:00 Hydrochlorothiazide (Hydrodiuril) 25 mg DAILY PO ; Start 12/12/20 at 09:00; Stop 12/12/20 at 07:23; Status DC Multivitamins (Thera M Plus) 1 tab DAILY PO Last administered on 12/18/20at 08:17; Start 12/12/20 at 09:00 Pregabalin (Lyrica) 100 mg TID PO Last administered on 12/13/20at 14:40; Start 12/12/20 at 09:00; Stop 12/13/20 at 14:43; Status DC Atorvastatin Calcium (Lipitor) 40 mg QHS PO Last administered on 12/17/20at 20:49; Start 12/12/20 at 21:00 Acetaminophen/ Hydrocodone Bitart (Lortab 10/325) 1 tab PRN Q6HRS PRN PO MODERATE TO SEVERE PAIN Last administered on 12/18/20at 04:12; Start 12/12/20 at 07:15 Hydrochlorothiazide (Hydrodiuril) 12.5 mg DAILY PO Last administered on 12/18/20at 08:16; Start 12/12/20 at 09:00 Amlodipine Besylate (Norvasc) 5 mg DAILY PO Last administered on 12/18/20 08:18; Start 12/12/20 at 09:00 Daptomycin 490 mg/ Sodium Chloride 50 ml @ 100 mls/hr Q24H IV Last administered on 12/16/20at 12:33; Start 12/12/20 at 12:00; Stop 12/17/20 at 09:20; Status DC Piperacillin Sod/ Tazobactam Sod 3.375 gm/Sodium Chloride 50 ml @ 100 mls/hr Q6HRS IV Last administered on 12/17/20at 06:11; Start 12/12/20 at 12:00; Stop 12/17/20 at 09:20; Status DC Lactobacillus Rhamnosus (Culturelle) 1 cap BID PO Last administered on 12/18/20at 08:17; Start 12/12/20 at 21:00 Ondansetron HCl (Zofran) 4 mg PRN Q4HRS PRN IVP NAUSEA/VOMITING Last administered on 12/17/20at 11:11; Start 12/12/20 at 21:30 Dextrose (Dextrose 50%-Water Syringe) 12.5 gm PRN Q15MIN PRN IV SEE COMMENTS; Start 12/13/20 at 13:00; Stop 12/14/20 at 15:46; Status DC Insulin Human Lispro (HumaLOG) 0-7 UNITS TIDWMEALS SQ Last administered on 12/15/20at 12:16; Start 12/13/20 at 17:00; Stop 12/16/20 at 09:10; Status DC Dextrose (Dextrose 50%-Water Syringe) 12.5 gm PRN Q15MIN PRN IV SEE COMMENTS; Start 12/13/20 at 13:15 Metformin HCl (Glucophage) 1,000 mg BIDWMEALS PO ; Start 12/13/20 at 17:00; Stop 12/13/20 at 17:02; Status DC Pregabalin (Lyrica) 50 mg TID PO Last administered on 12/15/20at 20:58; Start 12/13/20 at 15:00; Stop 12/16/20 at 07:54; Status DC Pantoprazole Sodium (Protonix) 40 mg Q24H PO Last administered on 12/17/20at 18:04; Start 12/13/20 at 18:30 Insulin Glargine (Lantus Syringe) 95 unit HS SQ Last administered on 12/15/20at 21:02; Start 12/13/20 at 21:00; Stop 12/16/20 at 09:10; Status DC Metformin HCl (Glucophage) 500 mg [id number] PO Last administered on 12/17/20at 12:07; Start 12/14/20 at 08:00 Pregabalin (Lyrica) 100 mg [id number] PO Last administered on 12/18/20at 08:17; Start 12/16/20 at 09:00; Stop 12/18/20 at 08:45; Status DC Insulin Glargine (Lantus Syringe) 50 unit HS SQ Last administered on 12/16/20at 21:32; Start 12/16/20 at 21:00; Stop 12/17/20 at 08:29; Status DC Sodium Chloride 1,000 ml @ 80 mls/hr [id number] IV Last administered on 12/16/20at 14:41; Start 12/16/20 at 13:30; Stop 12/18/20 at 08:45; Status DC Sodium Chloride 1,000 ml @ 100 mls/hr Q10H IV Last administered on 12/18/20at 05:09; Start 12/16/20 at 13:30; Stop 12/18/20 at 08:45; Status DC Morphine Sulfate (Morphine Sulfate) 6 mg 1X ONCE IV Last administered on 12/17/20at 04:04; Start 12/17/20 at 04:00; Stop 12/17/20 at 04:01; Status DC Iodixanol (Visipaque 320) 100 ml STK-MED ONCE .ROUTE ; Start 12/17/20 at 07:46; Stop 12/17/20 at 07:47; Status DC Heparin Sodium/ Sodium Chloride 1,000 ml @ As Directed STK-MED ONCE .ROUTE ; Start 12/17/20 at 07:46; Stop 12/17/20 at 07:47; Status DC Lidocaine HCl (Lidocaine 1% 20ml Vial) 20 ml STK-MED ONCE .ROUTE ; Start 12/17/20 at 07:47; Stop 12/17/20 at 07:47; Status DC Insulin Glargine (Lantus Syringe) 40 unit HS SQ Last administered on 12/17/20at 20:58; Start 12/17/20 at 21:00; Stop 12/18/20 at 08:45; Status DC Midazolam HCl (Versed) 5 mg STK-MED ONCE .ROUTE ; Start 12/17/20 at 08:33; Stop 12/17/20 at 08:34; Status DC Fentanyl Citrate (Fentanyl 5ml Vial) 250 mcg STK-MED ONCE .ROUTE ; Start 12/17/20 at 08:34; Stop 12/17/20 at 08:34; Status DC Heparin Sodium (Porcine) (Heparin Sodium) 10,000 unit STK-MED ONCE .ROUTE ; Start 12/17/20 at 08:34; Stop 12/17/20 at 08:34; Status DC Labetalol HCl (Normodyne Iv Push) 20 mg STK-MED ONCE IVP ; Start 12/17/20 at 08:58; Stop 12/17/20 at 08:58; Status DC Amoxicillin/ Clavulanate Potassium (Augmentin 875/ 125mg) 1 tab BID PO Last administered on 12/18/20at 08:17; Start 12/17/20 at 10:00 Heparin Sodium/ Sodium Chloride (HEPARIN for ARTERIAL LINE FLUSH) 1,000 unit 1X ONCE IART Last administered on 12/17/20at 09:30; Start 12/17/20 at 09:30; Stop 12/17/20 at 09:34; Status DC Midazolam HCl (Versed) 5 mg 1X ONCE IV Last administered on 12/17/20at 09:30; Start 12/17/20 at 09:30; Stop 12/17/20 at 09:34; Status DC Fentanyl Citrate (Fentanyl 5ml Vial) 250 mcg 1X ONCE IV Last administered on 12/17/20at 09:30; Start 12/17/20 at 09:30; Stop 12/17/20 at 09:34; Status DC Lidocaine HCl (Lidocaine 1% 20ml Vial) 20 ml 1X ONCE INJ Last administered on 12/17/20at 09:30; Start 12/17/20 at 09:30; Stop 12/17/20 at 09:34; Status DC Labetalol HCl (Normodyne Iv Push) 20 mg 1X ONCE IVP Last administered on 11/20 at 09:30; Start 12/17/20 at 09:30; Stop 12/17/20 at 09:34; Status DC Clopidogrel Bisulfate (Plavix) 75 mg STK-MED ONCE .ROUTE ; Start 12/17/20 at 09:33; Stop 12/17/20 at 09:34; Status DC Clopidogrel Bisulfate (Plavix) 300 mg 1X ONCE PO Last administered on 12/17/20at 09:45; Start 12/17/20 at 09:45; Stop 12/17/20 at 09:46; Status DC Heparin Sodium/ Sodium Chloride (HEPARIN for ARTERIAL LINE FLUSH) 1,000 unit 1X ONCE IART Last administered on 12/17/20at 09:45; Start 12/17/20 at 09:45; Stop 12/17/20 at 09:46; Status DC Hydralazine HCl (Apresoline Inj) 20 mg STK-MED ONCE .ROUTE ; Start 12/17/20 at 10:04; Stop 12/17/20 at 10:04; Status DC Clopidogrel Bisulfate (Plavix) 75 mg 1X ONCE PO Last administered on 12/17/20at 12:07; Start 12/17/20 at 10:15; Stop 12/17/20 at 10:25; Status DC Potassium Chloride (Klor-Con) 20 meq 1X ONCE PO Last administered on 12/17/20at 16:34; Start 12/17/20 at 15:30; Stop 12/17/20 at 15:51; Status DC Insulin Glargine (Lantus Syringe) 30 unit HS SQ ; Start 12/18/20 at 21:00 Pregabalin (Lyrica) 150 mg [id number] PO ; Start 12/18/20 at 16:00 Pregabalin (Lyrica) 50 mg 1X STAT PO Last administered on 12/18/20at 09:59; Start 12/18/20 at 08:42; Stop 12/18/20 at 08:47; Status DC Heparin Sodium (Porcine) 5000 unit/Sodium Chloride 505 ml @ 505 mls/hr 1X ONCE IRR ; Start 12/19/20 at 06:00; Stop 12/19/20 at 06:59 Cefazolin Sodium 1 gm/Sodium Chloride 500 ml @ 500 mls/hr 1X ONCE IRR ; Start 12/19/20 at 06:00; Stop 12/19/20 at 06:59 Active Scripts Active Oxycontin (Oxycodone HCl) 10 Mg Tab.er.12h 1 Tab PO BID MDD 2 Tablet(s) 30 Days Dok (Docusate Sodium) 100 Mg Capsule 100 Mg PO BID Methocarbamol 750 Mg Tablet 750 Mg PO TID PRN Reported Lyrica (Pregabalin) 100 Mg Capsule 1 Cap PO TID Percocet 5-325 Mg Tablet (Oxycodone/Acetaminophen) 1 Each Tablet 1 Tab PO PRN Q6HRS PRN Metformin Hcl 500 Mg Tablet 500 Mg PO BIDWMEALS Crestor (Rosuvastatin Calcium) 10 Mg Tablet 1 Tab PO DAILY Hydrochlorothiazide Tablet (Hydrochlorothiazide) 50 Mg Tablet 25 Mg PO DAILY Flomax (Tamsulosin Hcl) 0.4 Mg Cap.er.24h 1 Cap PO HS Multi-Day Vitamins (Multivitamin) 1 Each Tablet 1 Tab PO DAILY Aspirin 81 Mg Tab.chew 1 Tab PO DAILY Lantus (Insulin Glargine,Hum.rec.anlog) 100 Unit/1 Ml Vial 90 Unit SQ HS Vitals/I & O Vital Sign - Last 24 Hours 12/17/20 12/17/20 12/17/20 12/17/20 15:00 19:00 19:40 22:16 Temp 97.9 98.9 97.9 98.9 Pulse 65 70 Resp 18 18 B/P (MAP) 148/65 (92) 160/63 (95) Pulse Ox 97 96 O2 Delivery Room Air Room Air Room Air Room Air 12/17/20 12/18/20 12/18/20 12/18/20 23:00 03:00 04:12 05:11 Temp 98.9 98.3 98.9 98.3 Pulse 67 52 Resp 18 18 B/P (MAP) 133/55 (81) 139/80 (99) Pulse Ox 96 97 O2 Delivery Room Air Room Air Room Air Room Air 12/18/20 12/18/20 12/18/20 12/18/20 07:00 07:20 08:18 11:00 Temp 97.5 97.5 97.5 97.5 Pulse 65 65 70 Resp 16 17 B/P (MAP) 166/112 (130) 166/112 171/63 (99) Pulse Ox 96 96 O2 Delivery Room Air Room Air Room Air Intake and Output 12/17/20 12/17/20 12/18/20 15:00 23:00 07:00 Intake Total 800 ml Output Total 850 ml Balance -850 ml 800 ml Justifications for Admission Other Justification CHAGO TRISTAN APRN Dec 18, 2020 14:13
[2020-12-18 15:00] VITALS: BP 155/62
[2020-12-18] MEDS ORDERED: CLOPIDOGREL BISULFATE 75 MG TABLET PO SCH (15:00)
[2020-12-18] MEDS ORDERED: PREGABALIN 50 MG CAPSULE PO SCH (16:00)
[2020-12-18] MEDS ORDERED: INSULIN GLARGINE SYRINGE. SQ SCH (21:00)
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
[2020-12-19] MEDS ORDERED: HEPARIN SODIUM 5,000 UNIT in IV NORMAL SALINE 500ML BAG 500 ML IRR ONE (06:00)
== END 2020-12-18 16:10 | disposition home or self-care (01) | DRG 253 ==
LOC: ER 18:15 → 4 NORTH 22:45
PROVIDERS: ADMIT Family Medicine; ATTEND Family Medicine
PROC: 047H34Z Dilation of Right External Iliac Artery with Drug-eluting Intraluminal Device, Percutaneous Approach (ICD-10-PCS; principal; 2020-12-17)
PROC: 047C3DZ Dilation of Right Common Iliac Artery with Intraluminal Device, Percutaneous Approach (ICD-10-PCS; 2020-12-17)
PROC: 047D3DZ Dilation of Left Common Iliac Artery with Intraluminal Device, Percutaneous Approach (ICD-10-PCS; 2020-12-17)
PROC: B4101ZZ Fluoroscopy of Abdominal Aorta using Low Osmolar Contrast (ICD-10-PCS; 2020-12-17)
PROC: B41F1ZZ Fluoroscopy of Right Lower Extremity Arteries using Low Osmolar Contrast (ICD-10-PCS; 2020-12-17)
DX: E11.51 Type 2 diabetes mellitus with diabetic peripheral angiopathy without gangrene (principal); L03.115 Cellulitis of right lower limb; L97.919 Non-pressure chronic ulcer of unspecified part of right lower leg with unspecified severity; F11.20 Opioid dependence, uncomplicated; I70.201 Unspecified atherosclerosis of native arteries of extremities, right leg; E11.42 Type 2 diabetes mellitus with diabetic polyneuropathy; E11.65 Type 2 diabetes mellitus with hyperglycemia; E78.00 Pure hypercholesterolemia, unspecified; E78.5 Hyperlipidemia, unspecified; I12.9 Hypertensive chronic kidney disease with stage 1 through stage 4 chronic kidney disease, or unspecified chronic kidney disease; I25.10 Atherosclerotic heart disease of native coronary artery without angina pectoris; I70.8 Atherosclerosis of other arteries; M19.90 Unspecified osteoarthritis, unspecified site; N18.31 Chronic kidney disease, stage 3a; N40.0 Benign prostatic hyperplasia without lower urinary tract symptoms; Z95.1 Presence of aortocoronary bypass graft; K21.9 Gastro-esophageal reflux disease without esophagitis
CPT/HCPCS: 96365; 96366; 99285; G0269; 36415; 37221; 37223; 73630; 73700; 75625; 76937; 80048; 80053; 82550; 82962; 83605; 85025; 85651; 86140; 87040; 87071; 87075; 93306; 93925; 93970; 99152; 99153; C1892; C1894; C2623; J0878; J1644; J1815; J2250; J2270; J2405; J2543; J3010; J3370; J3490; J7030; J7040; 97116-GP; 97535-GO; G0378

== ENCOUNTER → 2021-04-14 | Outpatient (CLI) | payer MEDICARE ==
[~2021-04-14] MED LIST changes: +CLOP75TA PO; +DOCU-148 PO; -DOCU-153 PO; -DULO60CA6 PO; +DULO60CA7 PO; +PREG100C PO
--- NOTE | 2021-04-14 09:12 | KCIC ---
EXAM: Cervical spine CT without contrast. HISTORY: Pain. Hand numbness. TECHNIQUE: Computed tomographic images of the cervical spine were obtained without contrast. Multipla aniceto reformatting was performed. *One or more of the following individualized dose reduction techniques were utilized for this examina tion: 1. Automated exposure control. 2. Adjustment of the mA and/or kV according to patient size. 3. Use of iterative reconstruction technique. COMPARISON: 03/09/2020. FINDINGS: There is instrumented anterior spinal fusion and interbody fusion at C5-C6. There is partia l bony bridging across the disc space at this level. There is also posterior fusion instrumentation a t C5-C7. There is lucency surrounding the right C7 screw, suggesting a component of loosening. There is mild cervical curvature likely due to thoracic scoliosis. There is multilevel endplate remodeling. There is disc space narrowing at C6-C7. There is calcified atherosclerotic plaque involving the alexander tid bifurcations. The lung apices are unremarkable. At C2-C3, there is a posterior central disc protrusion superimposed on a disc bulge and endplate karen deling. There is mild bilateral facet arthropathy. There is mild central canal stenosis. At C3-C4, there is a posterior central to left paracentral disc protrusion superimposed on a disc bul ge and endplate remodeling. There is mild left facet arthropathy. There is left uncovertebral arthrop athy. There is minimal left foraminal stenosis. There is mild central canal stenosis. At C4-C5, there is a posterior central disc protrusion superimposed on a disc bulge and endplate karen deling. There is mild lateral facet arthropathy. There is bilateral uncovertebral arthropathy. There is mild right and minimal left foraminal stenosis. There is minimal central canal stenosis. At C5-C6, there is instrumented fusion. There is a disc bulge and endplate osteophytosis. There is mi ld bilateral facet arthropathy. There is bilateral uncovertebral arthropathy. There is minimal left f oraminal stenosis. There are right hemilaminectomy changes. At C6-C7, there is a left lateral recess to foraminal disc protrusion and osteophyte complex superimp osed on a disc bulge and endplate osteophytosis. There is mild bilateral facet arthropathy. There is left greater than right uncovertebral arthropathy. There is mild right and moderate left foraminal st enosis. There are left hemilaminectomy changes. IMPRESSION: 1. Instrumented anterior spinal fusion and interbody fusion at C5-C6. There has been slight increase in partial bony bridging across the disc space at this level. There is new posterior spinal instrumen tation at C5-C7. There is lucency surrounding the right C7 screw suggesting a component of loosening. 2. Multilevel degenerative change involving the cervical spine, described in detail above. This resul ts in foraminal and central canal stenosis at the aforementioned levels. There has been suspected dec rease in left foraminal stenosis at C6-C7. The stenosis at the remainder the levels is not significan tly changed, allowing for differences in imaging technique. Electronically signed by: Stephanie Ruiz MD (04/14/2021 9:10 AM) [id number]
== END ==
LOC: KCIC CT 08:18
PROVIDERS: ATTEND Family Medicine
DX: M47.812 Spondylosis without myelopathy or radiculopathy, cervical region (principal); M50.21 Other cervical disc displacement, high cervical region; M48.02 Spinal stenosis, cervical region; M25.78 Osteophyte, vertebrae
CPT/HCPCS: 72125